=== PATIENT | male | born 1955 | race Caucasian/White ===

== ENCOUNTER → 2021-06-01 | Outpatient (CLI) | payer MEDICARE ==
[2021-06-01 11:07] LABS: CREATININE FOR GFR 1.3 MG/DL (0.70-1.30); GLOMERULAR FILTRATION RATE 58.4 (>49)
== END ==
LOC: M LAB 09:16
PROVIDERS: ATTEND Physician Assistant Medical
DX: 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, unilateral, 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 (principal)

== ENCOUNTER → 2021-06-07 | Outpatient (CLI) | payer MEDICARE ==
[~2021-06-07] MED LIST: PROHANCE 279.3MG/ML 5ML VIAL As Ordered ONE
--- NOTE | 2021-06-08 16:58 | REPVR ---
PROCEDURE INFORMATION: Exam: MR Head Without and With Contrast; Internal Auditory Canals Exam date and time: 06/07/2021 9:48 AM Age: 66 years old Clinical indication: Other: Hearing loss in left ear TECHNIQUE: Imaging protocol: MR of the head without and with intravenous contrast. Exam focused on the internal auditory canals. Contrast material: PROHANCE; Contrast volume: 10 ml; Contrast route: INTRAVENOUS (IV); COMPARISON: No relevant prior studies available. FINDINGS: Brain: Mild scattered nonspecific T2/FLAIR hyperintensities of the periventricular and deep subcortical white matter, most likely secondary to chronic small vessel ischemic change. No intracranial hemorrhage or extra-axial fluid collection. No evidence of mass effect or midline shift. No restricted diffusion to suggest acute infarct. Normal appearance of cranial nerves on thin T2 sequences. Cerebellopontine angle cisterns are clear. Meckel's caves are clear. Internal auditory canals are clear. No abnormal intracranial enhancement. Ventricles: No ventriculomegaly. Sinuses: Moderate mucosal thickening of the paranasal sinuses. Mastoid air cells: Complete opacification of left mastoid air cells and left middle ear cavity. Bones/joints: Unremarkable. IMPRESSION: 1. Complete opacification of left mastoid air cells and left middle ear cavity. Correlate clinically for signs/symptoms of left otomastoiditis. 2. No acute intracranial pathology. 3. Moderate mucosal thickening of the paranasal sinuses. Electronically signed by: Yoni Parker On 06/08/2021 16:58:02 PM
== END ==
LOC: M RAD 08:37
PROVIDERS: ATTEND Otolaryngology
DX: 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, unilateral, 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 (principal); J32.9 Chronic sinusitis, unspecified
CPT/HCPCS: 70553; A9576

== ENCOUNTER → 2021-06-25 | Outpatient (CLI) | payer MEDICARE, OTHER ==
[~2021-06-25] MED LIST changes: +DOXY100T PO; +ECOT81TA5 PO; +FLUTISP; +GLIM4TAB5 PO; +K-TA10TA2 PO; +MELA5CAP2 PO; +METF500T13 PO; +METO1TAB32 PO; +NIFE1TAB52 PO; -PROHANCE 279.3MG/ML 5ML VIAL As Ordered ONE; +SIMV40TA20 PO; +SM N0.65; +TRUL0.5I SC
== END ==
LOC: M LABSMTC 09:47
PROVIDERS: ATTEND Anesthesiology
DX: Z01.818 Encounter for other preprocedural examination (principal); Z20.828 Contact with and (suspected) exposure to other viral communicable diseases

== ENCOUNTER → 2021-06-25 | Outpatient (CLI) | payer MEDICARE ==
--- NOTE | 2021-06-25 18:39 | ECGEPIP ---
[facility] Test Date: 2021-06-25 Pat Name: DEEP FIELDS Department: Room: - Gender: Male It Consulting Director: JANET : 1955 Requested By: Chris Cox Order Number: [id number] Reading MD: James Hayward Measurements Intervals [place] Rate: 73 P: 83 CA: 186 QRS: 52 QRSD: 82 T: 75 QT: 400 QTc: 440 Interpretive Statements Normal sinus rhythm Artifact on the baseline, limb leads Borderline First Degree AV Block No prior tracing in the system Electronically Signed on 06-25-2021 18:38:57 EDT by James Hayward
== END ==
LOC: M EKG 10:06
PROVIDERS: ATTEND Anesthesiology
DX: Z01.818 Encounter for other preprocedural examination (principal); Z95.5 Presence of coronary angioplasty implant and graft; E11.9 Type 2 diabetes mellitus without complications

== ENCOUNTER 2021-06-30 06:58 | Day surgery (SDC) | payer MEDICARE ==
[~2021-06-30] VITALS: Ht 175.3 cm; Wt 100.4 kg
[~2021-06-30 06:58] MED LIST changes: +LR 1,000 ML IV ONE; +dexameTHASONE 4 MG/ML 1ML VIAL (J1100 PER 1MG) IV ONE
--- OUTSIDE RECORDS SUMMARY | 2021-06-30 07:02 | CCD | Continuity of Care Document ---
Author Author Yoni MATHUR MD, CHI KIM Organization Unknown Address [address] [place] [address] Phone [phone] Care Team Providers Care Operations Leader Name Role Phone Ada Baugh AUTM [phone] Denis Chauhan M.D. AUTM [phone] Problems Description No Information Available Social History Type Date Description Comments Sex Unknown ETOH Use Denies alcohol use Tobacco Use Start: Unknown Non Smoker Recreational Drug Use Never Used Drugs Allergies and adverse reactions Active Allergies Criticality Reaction | Severity Comments Date Penicillins Unable to assess criticality 05/06/2021 Medications Active Medications SIG Qnty Indications Ordering Provide r Date Doxycycline Hyclate 100mg Tablets 100 mg by mouth twice daily x 21days 42tabs H70.12 Sumanth Mathur MD Fluticasone Propionate 50mcg/Act Suspension 2 sprays to each nostril daily 48gm H70.12 Sumanth cox MD 06/10/2021 Saline Nasal [place] 0.65% Solution 2 sprays to each nostril 2-3 times a day and as needed 264ml H70.12 To myles Mathur MD 06/10/2021 Metoprolol Succinate ER 25mg Tablets ER 24HR Take 1 Tablet By Mouth Once Daily Denis Chauhan M.D. Metformin HCL 500mg Tablets Take 1 Tablet By Mouth Twice Daily Denis Chauhan M.D. 00/0 000 Glimepiride 4mg Tablets Take 2 Tablets By Mouth Once Daily Denis Chauhan M.D. Trulicity 1.5mg/0.5ML Solution Pen -Inject Inject 1.5MG Weekly Denis Chauhan M.D. Nifedipine ER Osmotic Release 30mg Tablets ER 24HR Take 1 Tablet By Mouth Once Daily AT Bedtime Denis Chauhan M.D. Simvastatin 40mg Tablets Take 1 Tablet By Mouth Once Daily In The Evening Denis Chauhan M .D. Immunizations Description No Information Available Vital Signs Date Vital Result Comment 06/10/2021 1:36pm Height 69 inches 5'9" Weight 225.00 lb BMI (Body Mass Index) 33.2 kg/m2 [place] Body Weight 160 lb Weight 102.060 kg BSA (Body Surface Area) 2.17 m2 05/06/2021 3:16pm Weight 225.00 lb Weight 102.060 kg Results Test Acquired Date Facility Test Result H/L Range Note BUN & Creatinine ([facility]) 06/01/2021 [facility] Main Lab [address] [place] [id number] [phone] Blood Urea Nitrogen 16 mg/dL Normal 7-18 Creatinine With GFR 06/01/2021 [facility] nter Main Lab [address] [place] [address] [phone] Creatinine For GFR 1.30 mg/dL Normal 0.70-1.30 Glomerular Filtration Rate 58.4 Normal >49 1 1 Units are mL/min/1.73 m2 Chronic Kidney Disease Staging per NKF: Stage I & II GFR >=60 Normal to Mildly Decreased Stage III GFR 30-59 Moderately Decreased Stage IV GFR 15-29 Severely Decreased Stage V GFR <15 Very Little GFR Left ESRD GFR <15 on PICKER Procedures Date Code Description Status 05/06/2021 16099 Office/Outpatient New Moderate M DM 45-59 Minutes Completed Medical Devices Description No Information Available Encounters Type Date Location Provider Dx Diagnosis Office Visit 05/06/2021 3:00p [facility] Sumanth Mathur MD H90.A32 Mix cndct/snrl hear loss,uni,l ear w rstrcd hear cntra side H69.92 Unspecified Eustachian tube disorder, left ear H90.A21 Snsrnrl hear loss, uni, r ea r, with rstrcd hear cntra side Assessments Date Code Description Provider 06/10/2021 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, unilateral, 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 Sumanth Mathur MD 06/10/2021 H69.92 Unspecified Eustachian tube diso rder, left ear Sumanth Mathur MD 06/10/2021 H70.12 Chronic mastoiditis, left ear To myles Mathur MD 06/10/2021 J31.0 Chronic rhinitis Sumanth Mathur MD 05/06/2021 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
--- OUTSIDE RECORDS SUMMARY | 2021-06-30 07:02 | CCD | Continuity of Care Document ---
Author Author Yoni GERONIMO II, PA-C Organization Unknown Address [address], [address] [place] [address] Phone [phone] Care Team Providers Care Combat Systems Engineer Name Role Phone Ada Baugh AUTM [phone] Denis Chauhan M.D. AUTM [phone] Problems Description No Information Available Social History Type Date Description Comments Sex Unknown ETOH Use Denies alcohol use Tobacco Use Start: Unknown Non Smoker Recreational Drug Use Never Used Drugs Allergies and adverse reactions Active Allergies Criticality Reaction | Severity Comments Date Penicillins Unable to assess criticality 05/06/2021 Medications Active Medications SIG Qnty Indications Ordering Provide r Date Metoprolol Succinate ER 25mg Tablets ER 24HR Take 1 Tablet By Mouth Once Daily Denis Chauhan M.D. Metformin HCL 500mg Tablets Take 1 Tablet By Mouth Twice Daily Denis Chauhan M.D. 000 Glimepiride 4mg Tablets Take 2 Tablets By Mouth Once Daily Denis Chauhan M.D. Trulicity 1.5mg/0.5ML Solution Pen -Inject Inject 1.5MG Weekly Denis Chauhan M.D. 00 Nifedipine ER Osmotic Release 30mg Tablets ER 24HR Take 1 Tablet By Mouth Once Daily AT Bedtime Denis Chauhan M.D. Simvastatin 40mg Tablets Take 1 Tablet By Mouth Once Daily In The Evening Denis Chauhan M .D. Immunizations Description No Information Available Vital Signs Date Vital Result Comment 05/06/2021 3:16pm Weight 225.00 lb Weight 102.060 kg Results Test Acquired Date Facility Test Result H/L Range Note BUN & Creatinine ([facility]) 06/01/2021 [facility] Main Lab [address] [place] [address] [phone] Blood Urea Nitrogen 16 mg/dL Normal 7-18 Creatinine With GFR 06/01/2021 [facility] nter Main Lab [address] [place] [address] [phone] Creatinine For GFR 1.30 mg/dL Normal 0.70-1.30 Glomerular Filtration Rate 58.4 Normal >49 1 1 Units are mL/min/1.73 m2 Chronic Kidney Disease Staging per NKF: Stage I & II GFR >=60 Normal to Mildly Decreased Stage III GFR 30-59 Moderately Decreased Stage IV GFR 15-29 Severely Decreased Stage V GFR <15 Very Little GFR Left ESRD GFR <15 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 Procedures Description No Information Available Medical Devices Description No Information Available Encounters Description No Information Available Assessments Date Code Description Provider 05/06/2021 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, unilateral, 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 Sumanth Mathur MD 05/06/2021 H69.92 Unspecified Eustachian tube diso rder, left ear Sumanth Mathur MD 05/06/2021 H90.A21 Sensorineural hearin g loss, unilateral, right ear, with restricted hearing on the contralateral side Sumanth Mathur MD Plan of Treatment Future Appointment(s):* 06/10/2021 2:00 pm - Sumanth Mathur MD at [facility] * 06/30/2021 10:15 am - Sumanth Mathur MD at [facility] 05/06/2021 - Sumanth Mathur MD* 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
--- OUTSIDE RECORDS SUMMARY | 2021-06-30 07:02 | CCD | Continuity of Care Document ---
Author Author Yoni BETTENCOURT P.C. Organization Unknown Address [address] [place] [address] Phone [phone] Care Team Providers Care Acupressure Therapist Name Role Phone DENIS CHAUHAN M.D. PChalo AUTM [phone] Social History Type Date Description Comments Sex Unknown Medications Active Medications SIG Qnty Indications Ordering Provide r Date Keflex 500mg Capsules 1 by mouth three times a day 30caps Denis Chauhan M.D., P.C. 021 [address] 1 by mouth every day Denis Chauhan M.D., P.C[facility] 021 Valtrex 500mg Tablets 1 tab by mouth twice a day 30tabs Denis Chauhan M.D., P.C[facility] 021 Zovirax 5% Cream apply twice a day to rash 5gm Denis Chauhan M.D[facility] P[facility] 021 Hydroxyzine HCL 25mg Tablets 1 tab by mouth twice a day 30tabs Denis Chauhan M.D., P.C. 09/20 Betamethasone Dipropionate 0.05% O intment apply twice daily on affected area of the abdomen 45gm Denis Chauhan M.D[facility] 09/06/2020 Trulicity 1.5mg/0.5ML Solution Pen -Inject Inject 1.5MG Weekly 12units Denis Chauhan M.D., P.C. Metoprolol Succinate ER 25mg Tablets ER 24HR Take 1 tablet by mouth once daily 90tabs Denis rice M.D., P.C. Simvastatin 40mg Tablets Take 1 Tablet By Mouth Once Daily In The Evening 90tabs Olga Bettencourt, P.C. Metformin HCL 500mg Tablets Take 1 tablet by mouth twice daily 180tabs Denis Chauhan M.D., P.C. Nifedipine ER Osmotic Release 30mg Tablets ER 24HR Take 1 Tablet By Mouth Once Daily AT Bedtime 90tabs Denis Chauhan M.D., P.C. Freestyle Lite Test In Vitro 0 Str ip Use 1 Strip To Check Glucose Twice Daily 200units Denis Chauhan M.D., P.C. Freestyle Lite Test Strips [facility] Glimepiride 4mg Tablets Take 2 tablets by mouth once daily 180tabs Denis Chauhan M.D., [facility] Medications Administered in Office Medication SIG Qnty Indications Ordering Provider Date Technetium TC 99M Sestamibi Injection Denis Chauhan M.D., P.C. 09/12/2018 Vital Signs Date Vital Result Comment 05/09/2021 11:11am Height 69 inches 5'9" Weight 223.00 lb BMI (Body Mass Index) 32.9 kg/m2 Body Temperature 97.7 F BP Systolic 136 mmHg BP Diastolic 75 mmHg Heart Rate 81 /min O2 % BldC Oximetry 96 % 04/01/2021 11:23am Height 69 inches 5'9" Weight 225.12 lb BMI (Body Mass Index) 33.2 kg/m2 Body Temperature 98.1 F BP Systolic 145 mmHg BP Diastolic 86 mmHg Heart Rate 85 /min O2 % BldC Oximetry 98 % Respiratory Rate 18 /min Results Test Acquired Date Facility Test Result H/L Range Note Laboratory test finding 04/06/[address] [address] [phone] Hgba1c 9.2 % High 4.4 - 6.1 1 Urinalysis 04/06/[address] [address] [phone] Urinalysis (SEE NOTE) 2 Source R Color yellow Normal: Yellow Clarity clear Normal: Clear Spec [place] 1.020 1.001 - 1.030 pH 5 5 - 9 Glucose 1000 Abnormal Normal: Negative Bilirubin NEG Normal: Negative Ketone NEG Normal: Negative Protein NEG Normal: Negative Nitrite NEG Normal: Negative Blood NEG Normal: Negative Leuk Est NEG Normal: Negative Urobilinogen NOR less than 1.0 mg/dL Microscopic Not Indicate Laboratory test finding 04/06/2021 [facility] [address] [place] [address] [phone] PSA - Diagnostic 0.97 ng/mL 0.00 - 4.00 3 Cve Panel 04/06/2021 [facility] [address] [place] [address] [phone] Cve Panel (SEE NOTE) 4 Cholesterol 112 mg/dL Low 131 - 200 Triglycerides 283 mg/dL High 35 - 160 HDL 27 mg/dL Low 29 - 86 LDL 67 mg/dL 65 - 175 Risk Factor 4.1 3.4 - 4.9 LDL/HDL 2.48 1.00 - 3.55 5 Comprehensive Metabolic Panel 04/06/2021 [facility] [address] [place] [address] [phone] Comprehensive Metabo (SEE NOTE) 6 Sodium 134 mEq/L 134 - 153 Potassium 4.5 mEq/L 3.6 - 5.0 Chloride 100 mEq/L 98 - 107 Co2 23 mEq/L 22 - 30 Glucose 366 mg/dL High 70 - 99 BUN 16 mg/dL 7 - 21 Creatinine 1.1 mg/dL 0.7 - 1.5 BUN/Creat 15 8 - 27 Total Protein 7.1 g/dL 6.3 - 8.2 Albumin 4.2 g/dL 3.9 - 5.0 Globulin 2.9 GM/DL 2.4 - 3.2 A/G Ratio 1.4 0.8 - 2.0 Calcium 9.1 mg/dL 8.4 - 10.2 Total Bili <0.7 mg/dL 0.2 - 1.3 Alkaline Phos 68 U/L 38 - 126 Sgot/Ast 18 U/L 5 - 40 SGPT/Alt 22 U/L 7 - 56 Anion Gap 11.0 mmol/L 8.0 - 16.0 Age 66 yrs Non-Aa GFR >60 mL/min Afr Amer GFR >60 mL/min 7 Laboratory test finding 04/06/[address] [address] [phone] Cea 3.7 ng/mL 0.0-4.7 8 Culture Urine 04/06/2021 [place] [address] [phone] Culture Urine (SEE NOTE) 9 CBC W/Automated Diff 01/03/2021 [place] [address] [phone] CBC W/Automated Diff (SEE NOTE) 10 WBC 8.5 10^3/uL 4.2 - 11.0 RBC 5.88 10^6/uL 4.50 - 6.30 Hemoglobin 16.7 g/dL High 14.0 - 16.0 Hematocrit 49.9 % 41.0 - 51.0 MCV 84.9 fL 80.0 - 94.0 MCH 28.4 pg 27.0 - 34.0 MCHC 33.5 g/dL 31.0 - 36.0 RDW 13.4 % 11.5 - 14.8 Platelets 279 10^3/uL 150 - 450 MPV 9.2 fL 7.4 - 10.4 Neut 61.5 % 37.0 - 80.0 Lymph 23.6 % Low 25.0 - 40.0 Villalba 7.8 % 3.0 - 8.0 Eos 6.0 % 0.0 - 7.0 Baso 0.9 % 0.0 - 2.0 %Ig 0.2 % High 0.0 - 0.0 %NRBC 0.0 % 0.0 - 0.0 #Neut 5.20 10^3/uL 2.00 - 6.90 #Lymph 2.00 10^3/uL 0.60 - 3.40 #Villalba 0.66 10^3/uL 0.00 - 0.90 #Eos 0.51 10^3/uL 0.00 - 0.70 #Baso 0.08 10^3/uL 0.00 - 0.20 #Ig 0.02 10^3/uL 0.00 - 0.10 #NRBC 0.00 10^3/uL 0.00 - 0.00 Manual Diff NOT INDICATED RBC Morph NOT INDICATED Laboratory test finding 01/03/[address] [id number] [phone] Hgba1c 9.2 % High 4.4 - 6.1 11 Cve Panel 01/03/[address] [address] [phone] Cve Panel (SEE NOTE) 12 Cholesterol 123 mg/dL Low 131 - 200 Triglycerides 183 mg/dL High 35 - 160 HDL 32 mg/dL 29 - 86 LDL 79 mg/dL 65 - 175 Risk Factor 3.8 3.4 - 4.9 LDL/HDL 2.47 1.00 - 3.55 13 Laboratory test finding 01/03/[address] [address] [phone] CRP (High Sensitivity) 3.73 mg/L High 1.00 - 3. 00 14 Comprehensive Metabolic Panel 01/03/2021 [facility] [address] [place] [address] [phone] Comprehensive Metabo (SEE NOTE) 15 Sodium 136 mEq/L 134 - 153 Potassium 4.2 mEq/L 3.6 - 5.0 Chloride 99 mEq/L 98 - 107 Co2 28 mEq/L 22 - 30 Glucose 239 mg/dL High 70 - 99 BUN 13 mg/dL 7 - 21 Creatinine 1.1 mg/dL 0.7 - 1.5 BUN/Creat 12 8 - 27 Total Protein 7.5 g/dL 6.3 - 8.2 Albumin 4.5 g/dL 3.9 - 5.0 Globulin 3.0 GM/DL 2.4 - 3.2 A/G Ratio 1.5 0.8 - 2.0 Calcium 9.5 mg/dL 8.4 - 10.2 Total Bili <0.7 mg/dL 0.2 - 1.3 Alkaline Phos 67 U/L 38 - 126 Sgot/Ast 28 U/L 5 - 40 SGPT/Alt 37 U/L 7 - 56 Anion Gap 9.0 mmol/L 8.0 - 16.0 Age 65 yrs Non-Aa GFR >60 mL/min Afr Amer GFR >60 mL/min 16 Laboratory test finding 01/03/[address] [address] [phone] Ana M Ifa Negative 17 1 {A1] {HB] 2 URINALYSIS 3 \\BLDo\\PSA INTERPRETATION\\BLD x\\ The PSA assay should not be used alone for a screening test or diagnosis for presence or absence of malignant disease. Predictions of disease recurrence should not be based solely on values obtained from serial patient serum values. The PSA result was determined by "[employer]", on the Master TAYLOR 6000. Values obtained with different assay methods or kits cannot be used interchangeably. 4 LIPID PANEL 5 CVE RISK CHOL/HDL LDL/HDL MEN: 1/2 AVERAGE 3.43 1.00 AVERAGE 4.97 3.55 2X AVERAGE 9.55 6.25 3X AVERAGE 23.99 7.99 WOMEN: 1/2 AVERAGE 3.27 1.47 AVERAGE 4.44 3.22 2X AVERAGE 7.05 5.03 3X AVERAGE 11.04 6.14 6 COMPREHENSIVE METABOLIC PANE L 7 Male GFR Interprentation 20-49 yrs >60 mL/min Normal 50-59 yrs >56 mL/min Normal 60-69 yrs >49 mL/min Normal 70-79yrs >42 mL/min Normal 80 and above >35 mL/min Normal Female GFR Interpretation 20-39 yrs >60 mL/min Normal 40-49 yrs >58 mL/min Normal 50-59 yrs >51 mL/min Normal 60-69 yrs >45 mL/min Normal 70-79 yrs >39 mL/min Normal 80 and above >32 mL/min Normal 8 Nonsmokers <3.9 Smokers <5.6 [employer] Electrochemiluminescence Immunoassay (ECLIA) Values obtained with different assay methods or kits cannot be used interchangeably. Results cannot be interpreted as absolute evidence of the presence or absence of malignant disease. 9 _CULTURE URINE_ ^$[id number] ^^[id number] $$166369 ^^037829 $$118665 $$843156 $$280568 $$711869 $$062845 $$863503 $$584041 $$764564 $$447134 $$499377 $$429635 $$351545 $$652977 $$377792 $$686765 $$245319 $$648263 $$680343 $$628522 $$623974 $$699603 $$240717 $$392231 ^^251337 $$755451 $$973012 $$774541 -- Continued on next page -- Patient: DIAMOND Mack Order: [id number] Page 2 Culture: CULTURE URINE Status: Final -- Continued on next page -- Patient: DIAMOND Mack Order: [id number] Page 2 Culture: CULTURE URINE Status: Prelim $$[id number] $$[id number] REPORTED DATE/TIME: 04/09/2021 14:06 Culture: CULTURE URINE Status: Final Urine Culture,Comprehensive: P1 No growth in 36 - 48 hours. Previous result entered on 04/08/2021 13:44 ET No growth after 18-24 hours. P1 Test performed by: [facility] #: [id number] [address] [place] [address] [id number] [facility] [address] [employer] Press Operator : Bijan Yang MD NPI #: Non Destructive Testing Supervisor : 04/08/21.1456.XMT.SENT REF 04/09/21.2012.XMT.SENT REF 04/11/21.1140.XMT.SENT REF 04/11/21.1140. .to [facility] via mode m 10 COMPLETE BLOOD COUNT 11 {A1] {HB] 12 LIPID PANEL 13 CVE RISK CHOL/HDL LDL/HDL MEN: 1/2 AVERAGE 3.43 1.00 AVERAGE 4.97 3.55 2X AVERAGE 9.55 6.25 3X AVERAGE 23.99 7.99 WOMEN: 1/2 AVERAGE 3.27 1.47 AVERAGE 4.44 3.22 2X AVERAGE 7.05 5.03 3X AVERAGE 11.04 6.14 14 CDC/S HS-CRP CUT-OFF: RELATIVE RISK: <1.0 mg/L Low 1.0 - 3.0 mg/L A verage >3.0 mg/L High Optimally, the average of HS-CRP results repeated two weeks apart should be used for risk assessment. 15 COMPREHENSIVE METABOLIC PANE L 16 Male GFR Interprentation 20-49 yrs >60 mL/min Normal 50-59 yrs >56 mL/min Normal 60-69 yrs >49 mL/min Normal 70-79yrs >42 mL/min Normal 80 and above >35 mL/min Normal Female GFR Interpretation 20-39 yrs >60 mL/min Normal 40-49 yrs >58 mL/min Normal 50-59 yrs >51 mL/min Normal 60-69 yrs >45 mL/min Normal 70-79 yrs >39 mL/min Normal 80 and above >32 mL/min Normal 17 Negative <1:80 Borderline 1:80 Positive >1:80 Procedures Date Code Description Status 05/09/2021 38022 Office/Outpatient Established Mo d MDM 30-39 Min Completed 04/01/2021 04854 Office/Outpatient Established Mo d MDM 30-39 Min Completed 12/31/2020 72993 Office/Outpatient Established Mo d MDM 30-39 Min Completed Encounters Type Date Location Provider Dx Diagnosis Office Visit 05/09/2021 11:00a [facility] Denis [facility]auhan [facility] I11.9 Hypertensive heart disease without heart failure E10.9 Type 1 diabetes mellitus wit hout complications H66.92 Otitis media, unspecified, l eft ear E78.5 Hyperlipidemia, unspecified Office Visit 04/01/2021 11:30a [facility] Denis Chauhan [facility] I11.9 Hypertensive heart disease without heart failure E11.9 Type 2 diabetes mellitus wit hout complications E78.5 Hyperlipidemia, unspecified E66.9 Obesity, unspecified Office Visit 12/31/2020 10:15a [facility] Denis Chauhan [facility] I11.9 Hypertensive heart disease without heart failure E10.9 Type 1 diabetes mellitus wit hout complications L23.9 Allergic contact dermatitis, unspecified cause Assessments Date Code Description Provider 05/09/2021 I11.9 Hypertensive heart disease witho ri heart failure Denis [facility] 05/09/2021 E10.9 Type 1 diabetes mellitus without complications Denis [facility] 05/09/2021 H66.92 Otitis media, unspecified, left ear Denis [facility]han [facility] 05/09/2021 E78.5 Hyperlipidemia, unspecified Brannon Chauhan M.D., [facility]. 04/01/2021 I11.9 Hypertensive heart disease witho ri heart failure Denis [facility]han [facility] 04/01/2021 E11.9 Type 2 diabetes mellitus without complications Denis [facility] 04/01/2021 E78.5 Hyperlipidemia, unspecified Brannon Chauhan M.D[facility] 04/01/2021 E66.9 Obesity, unspecified Denis cavanaugh M.D[facility] 12/31/2020 I11.9 Hypertensive heart disease witho ri heart failure Denis [facility]han [facility] 12/31/2020 E10.9 Type 1 diabetes mellitus without complications Denis [facility]han [facility] 12/31/2020 L23.9 Allergic contact dermatitis, uns pecified cause Denis [facility]auhan [facility]
--- OUTSIDE RECORDS SUMMARY | 2021-06-30 07:02 | CCD | Continuity of Care Document ---
Author Author NORMAN VELA, Yoni CHAVIS [facility] Organization Unknown Address [address] [place] [address] Phone [phone] Care Team Providers Care Viscose Department Worker Name Role Phone Ada Baugh AUTM [phone] Denis Chauhan M.D. 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
--- OUTSIDE RECORDS SUMMARY | 2021-06-30 07:02 | CCD | Continuity of Care Document ---
Author Author Yoni Oden Organization Unknown Address Unknown Phone [phone] Care Team Providers Care Autism Teacher Name Role Phone DENIS CHAUHAN M.D. P.C. AUTM [phone] Social History Type Date Description Comments Sex Unknown Medications Active Medications SIG Qnty Indications Ordering Provide r Date Keflex 500mg Capsules 1 by mouth three times a day 30caps Denis Chauhan M.D.,P.C. 05/09/20 21 Aspir[address] 1 by mouth every day Denis Chauhan M.D.,P.[facility] 09/20/19 21 Valtrex 500mg Tablets 1 tab by mouth twice a day 30tabs Denis Chauhan M.D[facility]P.C. 09/20/19 21 Zovirax 5% Cream apply twice a day to rash 5gm Denis Chauhan M.D[facility]. 09/20/19 21 Hydroxyzine HCL 25mg Tablets 1 tab by mouth twice a day 30tabs Denis Chauhan M.D[facility] 2020 Betamethasone Dipropionate 0.05% O intment apply twice daily on affected area of the abdomen 45gm Denis Chauhan M.D[facility]. 09/06/2020 Trulicity 1.5mg/0.5ML Solution Pen -Inject Inject 1.5MG Weekly 12units Denis Chauhan M.D[facility]. 00 Metoprolol Succinate ER 25mg Tablets ER 24HR Take 1 tablet by mouth once daily 90tabs Denis rice M.D.,P.C. Simvastatin 40mg Tablets Take 1 Tablet By Mouth Once Daily In The Evening 90tabs Olga Amaro,P.C. Metformin HCL 500mg Tablets Take 1 tablet by mouth twice daily 180tabs Denis Chauhan M.D.,[facility]. Nifedipine ER Osmotic Release 30mg Tablets ER 24HR Take 1 Tablet By Mouth Once Daily AT Bedtime 90tabs Denis Chauhan M.D[facility]P.[facility]. Freestyle Lite Test In Vitro 0 Str ip Use 1 Strip To Check Glucose Twice Daily 200units Denis Chauhan M.D[facility]. Freestyle Lite Test Strips [facility] Glimepiride 4mg Tablets Take 2 tablets by mouth once daily 180tabs Denis Chauhan M.D[facility] 0 000 Medications Administered in Office Medication SIG Qnty Indications Ordering Provider Date Technetium TC 99M Sestamibi Injection Denis Chauhan M.D.,P.C. 09/12/2018 Vital Signs Date Vital Result Comment [...] Result H/L Range Note Laboratory test finding [facility] [address] [place] [address] [phone] Blood Urea Nitrogen 16 mg/dL Normal 7-18 Creatinine With GFR 06/01/2021 [place] [address] [place] [address] [phone] Creatinine For GFR 1.30 mg/dL Normal 0.70-1.30 Glomerular Filtration Rate 58.4 Normal >49 1 Laboratory test finding 04/06/[address] [address] [phone] Hgba1c 9.2 % High 4.4 - 6.1 2 Urinalysis 04/06/[address] [address] [phone] Urinalysis (SEE NOTE) 3 Source R Color yellow Normal: Yellow Clarity clear Normal: Clear Spec [place] 1.020 1.001 - 1.030 pH 5 5 - 9 Glucose 1000 Abnormal Normal: Negative Bilirubin NEG Normal: Negative Ketone NEG Normal: Negative Protein NEG Normal: Negative Nitrite NEG Normal: Negative Blood NEG Normal: Negative Leuk Est NEG Normal: Negative Urobilinogen NOR less than 1.0 mg/dL Microscopic Not Indicate Laboratory test finding 04/06/2021 [place] [address] [phone] PSA - Diagnostic 0.97 ng/mL 0.00 - 4.00 4 Cve Panel 04/06/2021 [place] [id number] [phone] Cve Panel (SEE NOTE) 5 Cholesterol 112 mg/dL Low 131 - 200 Triglycerides 283 mg/dL High 35 - 160 HDL 27 mg/dL Low 29 - 86 LDL 67 mg/dL 65 - 175 Risk Factor 4.1 3.4 - 4.9 LDL/HDL 2.48 1.00 - 3.55 6 Comprehensive Metabolic Panel 04/06/2021 [facility] [address] [place] [phone] Comprehensive Metabo (SEE NOTE) 7 Sodium 134 mEq/L 134 - 153 Potassium [...] >60 mL/min Afr Amer GFR >60 mL/min 8 Laboratory test finding 04/06/2021 [place] [address] [phone] Cea 3.7 ng/mL 0.0-4.7 9 Culture Urine 04/06/2021 [place] [address] [phone] Culture Urine (SEE NOTE) 10 CBC W/Automated Diff 01/03/2021 [place] [address] [phone] CBC W/Automated Diff (SEE NOTE) 11 WBC 8.5 10^3/uL 4.2 - 11.0 RBC [...] Lymph 23.6 % Low 25.0 - 40.0 Cannon 7.8 % 3.0 - 8.0 Eos 6.0 % 0.0 - 7.0 Baso 0.9 % 0.0 - 2.0 %Ig 0.2 % High 0.0 - 0.0 %NRBC 0.0 % 0.0 - 0.0 #Neut 5.20 10^3/uL 2.00 - 6.90 #Lymph 2.00 10^3/uL 0.60 - 3.40 #Cannon 0.66 10^3/uL 0.00 - 0.90 #Eos 0.51 10^3/uL 0.00 - 0.70 #Baso 0.08 10^3/uL 0.00 - 0.20 #Ig 0.02 10^3/uL 0.00 - 0.10 #NRBC 0.00 10^3/uL 0.00 - 0.00 Manual Diff NOT INDICATED RBC Morph NOT INDICATED Laboratory test finding 01/03/2021 [facility] [address] [place] [address] [phone] Hgba1c 9.2 % High 4.4 - 6.1 12 Cve Panel 01/03/[address] [address] [phone] Cve Panel (SEE NOTE) 13 Cholesterol 123 mg/dL Low 131 - 200 Triglycerides 183 mg/dL High 35 - 160 HDL 32 mg/dL 29 - 86 LDL 79 mg/dL 65 - 175 Risk Factor 3.8 3.4 - 4.9 LDL/HDL 2.47 1.00 - 3.55 14 Laboratory test finding 01/03/2021 [facility] [address] [place], [place] [id number] [phone] CRP (High Sensitivity) 3.73 mg/L High 1.00 - 3. 00 15 Comprehensive Metabolic Panel 01/03/2021 [facility] [address] [place] [address] [phone] Comprehensive Metabo (SEE NOTE) 16 Sodium 136 mEq/L 134 - 153 Potassium [...] >60 mL/min Afr Amer GFR >60 mL/min 17 Laboratory test finding 01/03/2021 [facility] [address] [place] [address] [phone] Ana M Ifa Negative 18 1 Units are mL/min/1.73 m2 Chronic Kidney Disease Staging per NKF: Stage I & II GFR >=60 Normal to Mildly Decreased Stage III GFR 30-59 Moderately Decreased Stage IV GFR 15-29 Severely Decreased Stage V GFR <15 Very Little GFR Left ESRD GFR <15 on GENERAL MERCHANDISE SALESPERSON 2 {A1] {HB] 3 URINALYSIS 4 \\BLDo\\PSA INTERPRETATION\\BLD x\\ The PSA assay should not be used alone for a screening test or diagnosis for presence or absence of malignant disease. Predictions of disease recurrence should not be based solely on values obtained from serial patient serum values. The PSA result was determined by "[employer]", on the [employer] TAYLOR 6000. Values obtained with different assay methods or kits cannot be used interchangeably. 5 LIPID PANEL 6 CVE RISK CHOL/HDL LDL/HDL MEN: 1/2 AVERAGE 3.43 1.00 AVERAGE 4.97 3.55 2X AVERAGE 9.55 6.25 3X AVERAGE 23.99 7.99 WOMEN: 1/2 AVERAGE 3.27 1.47 AVERAGE 4.44 3.22 2X AVERAGE 7.05 5.03 3X AVERAGE 11.04 6.14 7 COMPREHENSIVE METABOLIC PANE L 8 Male GFR Interprentation 20-49 yrs >60 mL/min Normal 50-59 yrs >56 mL/min Normal 60-69 yrs >49 mL/min Normal 70-79yrs >42 mL/min Normal 80 and above >35 mL/min Normal Female GFR Interpretation 20-39 yrs >60 mL/min Normal 40-49 yrs >58 mL/min Normal 50-59 yrs >51 mL/min Normal 60-69 yrs >45 mL/min Normal 70-79 yrs >39 mL/min Normal 80 and above >32 mL/min Normal 9 Nonsmokers <3.9 Smokers <5.6 [employer] Electrochemiluminescence Immunoassay (ECLIA) Values obtained with different assay methods or kits cannot be used interchangeably. Results cannot be interpreted as absolute evidence of the presence or absence of malignant disease. 10 _CULTURE URINE_ ^$[id number] ^^027611 $$071973 ^^116133 $$984847 $$523492 $$677559 $$102067 $$475163 $$786011 $$307268 $$638369 $$702331 $$330634 $$948361 $$094357 $$980965 $$346950 $$836799 $$231301 $$584030 $$482187 $$516620 $$946574 $$526832 $$306741 $$131986 ^^751744 $$519087 $$087331 $$823988 -- Continued on next page -- Patient: DIAMOND Mack Order: [id number] Page 2 Culture: CULTURE URINE Status: Final -- Continued on next page -- Patient: DIAMOND Mack Order: [id number] Page 2 Culture: CULTURE URINE Status: Prelim $$[id number] $$[id number] REPORTED DATE/TIME: 04/09/2021 14:06 Culture: CULTURE URINE Status: Final Urine Culture,Comprehensive: P1 No growth in 36 - 48 hours. Previous result entered on 04/08/2021 13:44 ET No growth after 18-24 hours. P1 Test performed by: [facility] Cheryl JOHNSON #: [id number] [address] [place] [address] [phone] [facility] [address] Blind Hanger : Bijan Yang MD NPI #: Staff Reporter : 04/08/21.1456.XMT.SENT REF 04/09/21.2013.XMT.SENT REF 04/11/21.1140.XMT.SENT REF 04/11/21.1140. .to HARRY STORM via mode m 11 COMPLETE BLOOD COUNT 12 {A1] {HB] 13 LIPID PANEL 14 CVE RISK CHOL/HDL LDL/HDL MEN: 1/2 AVERAGE 3.43 1.00 AVERAGE 4.97 3.55 2X AVERAGE 9.55 6.25 3X AVERAGE 23.99 7.99 WOMEN: 1/2 AVERAGE 3.27 1.47 AVERAGE 4.44 3.22 2X AVERAGE 7.05 5.03 3X AVERAGE 11.04 6.14 15 CDC/S HS-CRP CUT-OFF: RELATIVE RISK: <1.0 mg/L Low 1.0 - 3.0 mg/L A verage >3.0 mg/L High Optimally, the average of HS-CRP results repeated two weeks apart should be used for risk assessment. 16 COMPREHENSIVE METABOLIC PANE L 17 Male GFR Interprentation 20-49 yrs >60 mL/min Normal 50-59 yrs >56 mL/min Normal 60-69 yrs >49 mL/min Normal 70-79yrs >42 mL/min Normal 80 and above >35 mL/min Normal Female GFR Interpretation 20-39 yrs >60 mL/min Normal 40-49 yrs >58 mL/min Normal 50-59 yrs >51 mL/min Normal 60-69 yrs >45 mL/min Normal 70-79 yrs >39 mL/min Normal 80 and above >32 mL/min Normal 18 Negative <1:80 Borderline 1:80 Positive >1:80 Procedures Date Code Description Status 05/09/2021 56277 Office/Outpatient Established Mo d MDM 30-39 Min Completed 04/01/2021 44542 Office/Outpatient Established Mo d MDM 30-39 Min Completed 12/31/2020 39696 Office/Outpatient Established Mo d MDM 30-39 Min Completed Encounters Type Date Location Provider Dx Diagnosis Office Visit 05/09/2021 11:00a [facility] Denis Chauhan M.D.,P. C. I11.9 Hypertensive heart disease without heart failure E10.9 Type 1 diabetes mellitus wit hout complications H66.92 Otitis media, unspecified, l eft ear E78.5 Hyperlipidemia, unspecified Office Visit 04/01/2021 11:30a [facility] Denis Chauhan M.D.,P. C. I11.9 Hypertensive heart disease without heart failure E11.9 Type 2 diabetes mellitus wit hout complications E78.5 Hyperlipidemia, unspecified E66.9 Obesity, unspecified Office Visit 12/31/2020 10:15a [facility] Denis Chauhan M.D.,P. C. I11.9 Hypertensive heart disease without heart failure E10.9 Type 1 diabetes mellitus wit hout complications L23.9 Allergic contact dermatitis, unspecified cause Assessments Date Code Description Provider 05/09/2021 I11.9 Hypertensive heart disease witho ut heart failure Denis Chauhan M.D[facility]. 05/09/2021 E10.9 Type 1 diabetes mellitus without complications Denis Chauhan M.D.,[facility]. 05/09/2021 H66.92 Otitis media, unspecified, left ear Denis Chauhan M.D.,P.C. 05/09/2021 E78.5 Hyperlipidemia, unspecified Brannon Chauhan M.D.,P.C. 04/01/2021 I11.9 Hypertensive heart disease witho ut heart failure Denis Chauhan M.D.,P.C. 04/01/2021 E11.9 Type 2 diabetes mellitus without complications Denis Chauhan M.D.,[facility]. 04/01/2021 E78.5 Hyperlipidemia, unspecified Brannon Chauhan M.D.,P.C. 04/01/2021 E66.9 Obesity, unspecified Denis cavanaugh M.D.,P.C. 12/31/2020 I11.9 Hypertensive heart disease witho ut heart failure Denis Chauhan M.D.,P.C. 12/31/2020 E10.9 Type 1 diabetes mellitus without complications Denis Chauhan M.D.,[facility]. 12/31/2020 L23.9 Allergic contact dermatitis, uns pecified cause Denis Chauhan M.D.,P.C.
--- OUTSIDE RECORDS SUMMARY | 2021-06-30 07:02 | CCD | Continuity of Care Document ---
Author Author NORMAN VELA, Yoni CHAVIS [facility] Organization Unknown Address [address] [place] [address] Phone [phone] Care Team Providers Care Transport Nurse Name Role Phone Ada Baugh AUTM [phone] Denis Chauhan M.D. AUTM [phone] Problems Description No Information Available Social History [...]
--- OUTSIDE RECORDS SUMMARY | 2021-06-30 07:02 | CCD ---
"Continuity of Care Document (CCD) Created on: 05/06/2021 Yoni Solares External Reference #: [id number] : [id number] Sex: Male Author Author NORMAN VELA, Yoni CHAVIS [facility] Organization Unknown Address [address] [place] [address] Phone [phone] Care Team Providers Care Sander Wooden Pencils Name Role Phone Ada Baugh AUTM [phone] Denis Chauhan M.D. AUTM [phone] Problems Description No Information Available Social History [...]
--- OUTSIDE RECORDS SUMMARY | 2021-06-30 07:02 | CCD | Continuity of Care Document ---
Author Author NORMAN VELA, Yoni CHAVIS [facility] Organization Unknown Address [address] [place] [address] Phone [phone] Care Team Providers Care Rn Pool Name Role Phone Ada Baugh AUTM [phone] Denis Chauhan M.D. AUTM [phone] Problems Description No Information Available Social History [...] 1.5mg/0.5ML Solution Pen -Inject Inject 1.5MG Weekly Deins Chauhan M.D. 00 Nifedipine ER Osmotic Release [...]
--- OUTSIDE RECORDS SUMMARY | 2021-06-30 07:02 | CCD | Continuity of Care Document ---
Author Author Yoni MATHUR MD, CHI KIM Organization Unknown Address [address] [place] [address] Phone [phone] Care Team Providers Care Shoulder Puncher Name Role Phone Ada Baugh AUTM [phone] Denis Chauhan M.D. AUTM [phone] Problems Description No Information Available Social History [...] H70.12 Sumanth cox MD 06/10/2021 Saline Nasal [place] 0.65% Solution 2 sprays to each nostril [...] lb BMI (Body Mass Index) 33.2 kg/m2 [place] Body Weight 160 lb Weight 102.060 kg BSA (Body Surface Area) 2.17 m2 05/06/2021 3:16pm Weight 225.00 lb Weight 102.060 kg Results Test Acquired Date Facility Test Result H/L Range Note BUN & Creatinine ([facility]) 06/01/2021 [facility] Main Lab [address] [place] [address] [phone] Blood Urea Nitrogen 16 mg/dL Normal 7-18 Creatinine With GFR 06/01/2021 [facility] nter Main Lab [address] [place], [place] [phone] Creatinine For GFR 1.30 mg/dL Normal 0.70-1.30 Glomerular Filtration Rate 58.4 Normal >49 1 1 Units are mL/min/1.73 m2 Chronic Kidney Disease Staging per NKF: Stage I & II GFR >=60 Normal to Mildly Decreased Stage III GFR 30-59 Moderately Decreased Stage IV GFR 15-29 Severely Decreased Stage V GFR <15 Very Little GFR Left ESRD GFR <15 on FIELD CROP FARMER Procedures Description No Information Available Medical Devices Description No Information Available Encounters Description No Information Available Assessments Date Code Description Provider 06/10/2021 H90.A32 [...] 10:15 am - Sumanth Mathur MD at [facility] 06/10/2021 - Sumanth Mathur MD* H90.A32 [...] to each nostril daily * Saline Nasal [place] 0.65 % - 2 sprays to each nostril 2-3 times a day and as needed * J31.0 Chronic rhinitis Functional Status Description No Information Available Mental Status Description No Information Available Referrals Description No Information Available
--- OUTSIDE RECORDS SUMMARY | 2021-06-30 07:02 | CCD | Continuity of Care Document ---
Author Author Yoni MATHUR MD, CHI KIM Organization Unknown Address [address] [place] [address] Phone [phone] Care Team Providers Care Grease Remover Name Role Phone Ada Baugh AUTM [phone] Denis Chauhan M.D. AUTM [phone] Problems Description No Information Available Social History [...] H70.12 Sumanth cox MD 06/10/2021 Saline Nasal [place] 0.65% Solution 2 sprays to each nostril [...] lb BMI (Body Mass Index) 33.2 kg/m2 [place] Body Weight 160 lb Weight 102.060 kg BSA (Body Surface Area) 2.17 m2 05/06/2021 3:16pm Weight 225.00 lb Weight 102.060 kg Results Test Acquired Date Facility Test Result H/L Range Note BUN & Creatinine ([facility]) 06/01/2021 [facility] Main Lab [address] [place] [address] [phone] Blood Urea Nitrogen 16 mg/dL Normal 7-18 Creatinine With GFR 06/01/2021 [facility] nter Main Lab [address] [place], [place] [id number] [phone] Creatinine For GFR 1.30 mg/dL Normal 0.70-1.30 Glomerular Filtration Rate 58.4 Normal >49 1 1 Units are mL/min/1.73 m2 Chronic Kidney Disease Staging per NKF: Stage I & II GFR >=60 Normal to Mildly Decreased Stage III GFR 30-59 Moderately Decreased Stage IV GFR 15-29 Severely Decreased Stage V GFR <15 Very Little GFR Left ESRD GFR <15 on HOSPITALIST PROGRAM DIRECTOR Procedures Description No Information Available Medical Devices [...] 10:15 am - Sumanth Mathur MD at [facility] 06/10/2021 - Sumanth Mathur MD* H90.A32 [...] to each nostril daily * Saline Nasal [place] 0.65 % - 2 sprays to each nostril 2-3 times a day and as needed * J31.0 Chronic rhinitis Functional Status Description No Information Available Mental Status Description No Information Available Referrals Description No Information Available
--- OUTSIDE RECORDS SUMMARY | 2021-06-30 07:02 | CCD | Continuity of Care Document ---
Author Author Yoni MATHUR MD, CHI KIM Organization Unknown Address [address] [place] [address] Phone [phone] Care Team Providers Care It Analyst Name Role Phone Ada Baugh AUTM [phone] Denis Chauhan M.D. AUTM [phone] Problems Description No Information Available Social History [...] H70.12 Sumanth cox MD 06/10/2021 Saline Nasal [place] 0.65% Solution 2 sprays to each nostril [...] lb BMI (Body Mass Index) 33.2 kg/m2 [place] Body Weight 160 lb Weight 102.060 kg BSA (Body Surface Area) 2.17 m2 05/06/2021 3:16pm Weight 225.00 lb Weight 102.060 kg Results Test Acquired Date Facility Test Result H/L Range Note BUN & Creatinine ([facility]) 06/01/2021 [facility] Main Lab [address] [place] [address] [phone] Blood Urea Nitrogen 16 mg/dL Normal 7-18 Creatinine With GFR 06/01/2021 [facility] nter Main Lab [address] [place], [place] [phone] Creatinine For GFR 1.30 mg/dL Normal 0.70-1.30 Glomerular Filtration Rate 58.4 Normal >49 1 1 Units are mL/min/1.73 m2 Chronic Kidney Disease Staging per NKF: Stage I & II GFR >=60 Normal to Mildly Decreased Stage III GFR 30-59 Moderately Decreased Stage IV GFR 15-29 Severely Decreased Stage V GFR <15 Very Little GFR Left ESRD GFR <15 on DOULA Procedures Description No Information Available Medical Devices [...] am - Sumanth Mathur MD at [facility] 06/10/2021 - Sumanth Mathur MD* [...] to each nostril daily * Saline Nasal [place] 0.65 % - 2 sprays to each nostril 2-3 times a day and as needed * J31.0 Chronic rhinitis Functional Status Description No Information Available Mental Status Description No Information Available Referrals Description No Information Available
--- OUTSIDE RECORDS SUMMARY | 2021-06-30 07:02 | CCD | Continuity of Care Document ---
Author Author Yoni BETTENCOURT P.C. Organization Unknown Address [address] [place] [address] Phone [phone] Care Team Providers Care Pipe Recovery Specialist Name Role Phone DENIS CHAUHAN M.D. PChalo AUTM [phone] Social History Type Date Description Comments Sex [...] Chauhan M.D., P.C. Freestyle Lite Test Strips Formerly [facility] Glimepiride 4mg Tablets Take 2 tablets by [...] H/L Range Note Laboratory test finding 04/06/[address] [address] [phone] Hgba1c 9.2 % High 4.4 - 6.1 1 Urinalysis 04/06/[address] [address] [phone] Urinalysis (SEE NOTE) 2 Source R Color yellow Normal: Yellow Clarity clear Normal: Clear Spec [place] 1.020 1.001 - 1.030 pH 5 5 - 9 Glucose 1000 Abnormal Normal: Negative Bilirubin NEG Normal: Negative Ketone NEG Normal: Negative Protein NEG Normal: Negative Nitrite NEG Normal: Negative Blood NEG Normal: Negative Leuk Est NEG Normal: Negative Urobilinogen NOR less than 1.0 mg/dL Microscopic Not Indicate Laboratory test finding 04/06/2021 [facility] [address] [place] [address] [phone] PSA - Diagnostic 0.97 ng/mL 0.00 - 4.00 3 Cve Panel 04/06/2021 [facility] [address] [place] [address] [phone] Cve Panel (SEE NOTE) 4 Cholesterol 112 mg/dL Low 131 - 200 Triglycerides 283 mg/dL High 35 - 160 HDL 27 mg/dL Low 29 - 86 LDL 67 mg/dL 65 - 175 Risk Factor 4.1 3.4 - 4.9 LDL/HDL 2.48 1.00 - 3.55 5 Comprehensive Metabolic Panel 04/06/2021 [facility] [address] [place] [address] [phone] Comprehensive Metabo (SEE NOTE) 6 Sodium 134 [...] >60 mL/min 7 Laboratory test finding 04/06/[address] [address] [phone] Cea 3.7 ng/mL 0.0-4.7 8 Culture Urine 04/06/2021 [place] [address] [phone] Culture Urine (SEE NOTE) 9 CBC W/Automated Diff 01/03/2021 [place] [address] [phone] CBC W/Automated Diff (SEE NOTE) 10 WBC [...] Lymph 23.6 % Low 25.0 - 40.0 [place] 7.8 % 3.0 - 8.0 Eos 6.0 % 0.0 - 7.0 Baso 0.9 % 0.0 - 2.0 %Ig 0.2 % High 0.0 - 0.0 %NRBC 0.0 % 0.0 - 0.0 #Neut 5.20 10^3/uL 2.00 - 6.90 #Lymph 2.00 10^3/uL 0.60 - 3.40 #[place] 0.66 10^3/uL 0.00 - 0.90 #Eos 0.51 10^3/uL 0.00 - 0.70 #Baso 0.08 10^3/uL 0.00 - 0.20 #Ig 0.02 10^3/uL 0.00 - 0.10 #NRBC 0.00 10^3/uL 0.00 - 0.00 Manual Diff NOT INDICATED RBC Morph NOT INDICATED Laboratory test finding 01/03/[address] [id number] [phone] Hgba1c 9.2 % High 4.4 - 6.1 11 Cve Panel 01/03/[address] [address] [phone] Cve Panel (SEE NOTE) 12 Cholesterol 123 mg/dL Low 131 - 200 Triglycerides 183 mg/dL High 35 - 160 HDL 32 mg/dL 29 - 86 LDL 79 mg/dL 65 - 175 Risk Factor 3.8 3.4 - 4.9 LDL/HDL 2.47 1.00 - 3.55 13 Laboratory test finding 01/03/[address] [address] [phone] CRP (High Sensitivity) 3.73 mg/L High 1.00 - 3. 00 14 Comprehensive Metabolic Panel 01/03/2021 [facility] [address] [place] [address] [phone] Comprehensive Metabo (SEE NOTE) 15 Sodium 136 [...] >60 mL/min 16 Laboratory test finding 01/03/[address] [address] [phone] Ana M Ifa Negative 17 1 {A1] [...] absence of malignant disease. 9 _CULTURE URINE_ ^$[id number] ^^[id number] $$685160 ^^395779 $$502375 $$318121 $$326550 $$446656 $$912978 $$654133 $$692096 $$147776 $$737507 $$770528 $$163999 $$138760 $$563101 $$855169 $$976701 $$523937 $$786471 $$264270 $$239491 $$542278 $$439020 $$612244 $$204988 ^^441820 $$815618 $$549106 $$712958 -- Continued on next page -- Patient: DIAMOND Mack Order: [id number] Page 2 Culture: CULTURE URINE Status: Final -- Continued on next page -- Patient: DIAMOND Mack Order: [id number] Page 2 Culture: CULTURE URINE Status: Prelim $$[id number] $$[id number] REPORTED DATE/TIME: 04/09/2021 14:06 Culture: CULTURE URINE Status: Final Urine Culture,Comprehensive: P1 No growth in 36 - 48 hours. Previous result entered on 04/08/2021 13:44 ET No growth after 18-24 hours. P1 Test performed by: [facility] #: [id number] [address] [place] [address] [id number] [facility] [address] Supervisor Malted Milk : Bijan Yang MD NPI #: Spot Cleaner : 04/08/21.1456.XMT.SENT REF 04/09/21.2012.XMT.SENT REF 04/11/21.1140.XMT.SENT REF 04/11/21.1140. .to [facility] via mode m 10 COMPLETE BLOOD COUNT [...] Positive >1:80 Procedures Date Code Description Status 04/01/2021 43506 Office/Outpatient Established Mo d MDM 30-39 Min Completed 12/31/2020 87109 Office/Outpatient Established Mo d MDM 30-39 Min Completed Encounters Type Date Location Provider Dx Diagnosis Office Visit 04/01/2021 11:30a [facility] Denis Chauhan M.D., P .C. I11.9 Hypertensive heart disease without heart failure E11.9 Type 2 diabetes mellitus wit hout complications E78.5 Hyperlipidemia, unspecified E66.9 Obesity, unspecified Office Visit 12/31/2020 10:15a [facility] Denis Chauhan M.D., P .C. I11.9 Hypertensive heart disease without heart failure E10.9 Type 1 diabetes mellitus wit hout complications L23.9 Allergic contact dermatitis, unspecified cause Assessments Date Code Description Provider 04/01/2021 I11.9 Hypertensive heart disease witho ut heart failure Denis Chauhan M.D[facility] 04/01/2021 E11.9 Type 2 diabetes mellitus without complications Denis Chauhan M.D[facility] P.[facility] 04/01/2021 E78.5 Hyperlipidemia, unspecified Brannon Chauhan M.D., P.C. 04/01/2021 E66.9 Obesity, unspecified Denis cavanaugh M.D., P.C. 12/31/2020 I11.9 Hypertensive heart disease witho ut heart failure Denis Chauhan M.D., P.[facility] 12/31/2020 E10.9 Type 1 diabetes mellitus without complications Denis Chauhan M.D., P.[facility]. 12/31/2020 L23.9 Allergic contact dermatitis, uns pecified cause Denis Chauhan M.D., P.C.
--- OUTSIDE RECORDS SUMMARY | 2021-06-30 07:03 | CCD | Continuity of Care Document ---
Author Author Yoni BETTENCOURT P.CDivina Organization Unknown Address [address] [place] [address] Phone [phone] Care Team Providers Care Seed Laboratory Assistant Name Role Phone Mere BETTENCOURT AUTM [phone] Social History Type Date Description Comments Sex Unknown Medications Active Medications SIG Qnty Indications Ordering Provide r Date Aspirin [address] 1 by [...] M.D., P.C. Freestyle Lite Test Strips Formerly [facility] Glimepiride 4mg Tablets Take 2 tablets by mouth once daily 180tabs Denis Chauhan M.D., P.C. Medications Administered in Office Medication SIG Qnty Indications Ordering Provider Date Technetium TC 99M Sestamibi Injection Denis Chauhan M.D., P.C. 09/12/2018 Vital Signs Date Vital Result Comment 04/01/2021 11:23am Height 69 inches 5'9" Weight 225.12 lb BMI (Body Mass Index) 33.2 kg/m2 Body Temperature 98.1 F BP Systolic 145 mmHg BP Diastolic 86 mmHg Heart Rate 85 /min O2 % BldC Oximetry 98 % Respiratory Rate 18 /min 12/31/2020 10:15am Height 69 inches 5'9" Weight 223.50 lb BMI (Body Mass Index) 33.0 kg/m2 Body Temperature 97.7 F BP Systolic 132 mmHg BP Diastolic 71 mmHg Heart Rate 80 /min O2 % BldC Oximetry 98 % Respiratory Rate 18 /min Results Test Acquired Date Facility Test Result H/L Range Note Laboratory test finding 04/06/[address] [address] [phone] Hgba1c 9.2 % High 4.4 - 6.1 1 Urinalysis 04/06/[address] 1330700 [phone] Urinalysis (SEE NOTE) 2 Source R Color yellow Normal: Yellow Clarity clear Normal: Clear Spec [place] 1.020 1.001 - 1.030 pH 5 5 - 9 Glucose 1000 Abnormal Normal: Negative Bilirubin NEG Normal: Negative Ketone NEG Normal: Negative Protein NEG Normal: Negative Nitrite NEG Normal: Negative Blood NEG Normal: Negative Leuk Est NEG Normal: Negative Urobilinogen NOR less than 1.0 mg/dL Microscopic Not Indicate Laboratory test finding 04/06/2021 [place] [address] [phone] PSA - Diagnostic 0.97 ng/mL 0.00 - 4.00 3 Cve Panel 04/06/2021 [place] [address] [phone] Cve Panel (SEE NOTE) 4 Cholesterol 112 mg/dL Low 131 - 200 Triglycerides 283 mg/dL High 35 - 160 HDL 27 mg/dL Low 29 - 86 LDL 67 mg/dL 65 - 175 Risk Factor 4.1 3.4 - 4.9 LDL/HDL 2.48 1.00 - 3.55 5 Comprehensive Metabolic Panel 04/06/2021 [facility] [address] [place] [address] [phone] Comprehensive Metabo (SEE NOTE) 6 Sodium 134 [...] >60 mL/min 7 Laboratory test finding 04/06/2021 [place] [id number] [phone] Cea 3.7 ng/mL 0.0-4.7 8 CBC W/Automated Diff 01/03/2021 [place] [address] [phone] CBC W/Automated Diff (SEE NOTE) 9 WBC 8.5 10^3/uL 4.2 - 11.0 RBC [...] Lymph 23.6 % Low 25.0 - 40.0 [place] 7.8 % 3.0 - 8.0 Eos 6.0 % 0.0 - 7.0 Baso 0.9 % 0.0 - 2.0 %Ig 0.2 % High 0.0 - 0.0 %NRBC 0.0 % 0.0 - 0.0 #Neut 5.20 10^3/uL 2.00 - 6.90 #Lymph 2.00 10^3/uL 0.60 - 3.40 #[place] 0.66 10^3/uL 0.00 - 0.90 #Eos 0.51 10^3/uL 0.00 - 0.70 #Baso 0.08 10^3/uL 0.00 - 0.20 #Ig 0.02 10^3/uL 0.00 - 0.10 #NRBC 0.00 10^3/uL 0.00 - 0.00 Manual Diff NOT INDICATED RBC Morph NOT INDICATED Laboratory test finding 01/03/2021 [place] [address] [phone] Hgba1c 9.2 % High 4.4 - 6.1 10 Cve Panel 01/03/2021 [place] [address] [phone] Cve Panel (SEE NOTE) 11 Cholesterol 123 mg/dL Low 131 - 200 Triglycerides 183 mg/dL High 35 - 160 HDL 32 mg/dL 29 - 86 LDL 79 mg/dL 65 - 175 Risk Factor 3.8 3.4 - 4.9 LDL/HDL 2.47 1.00 - 3.55 12 Laboratory test finding [facility]03[facility] [address] [place] [address] [phone] CRP (High Sensitivity) 3.73 mg/L High 1.00 - 3. 00 13 Comprehensive Metabolic Panel 01/03/2021 [facility] [address] [place] [address] [phone] Comprehensive Metabo (SEE NOTE) 14 Sodium 136 mEq/L 134 - 153 Potassium [...] >60 mL/min Afr Amer GFR >60 mL/min 15 Laboratory test finding 01/03/2021 [facility] [address] [place] [address] [phone] Ana M Ifa Negative 16 1 {A1] {HB] 2 URINALYSIS 3 \\BLDo\\PSA [...] presence or absence of malignant disease. 9 COMPLETE BLOOD COUNT 10 {A1] {HB] 11 LIPID PANEL 12 CVE RISK CHOL/HDL LDL/HDL MEN: 1/2 AVERAGE 3.43 1.00 AVERAGE 4.97 3.55 2X AVERAGE 9.55 6.25 3X AVERAGE 23.99 7.99 WOMEN: 1/2 AVERAGE 3.27 1.47 AVERAGE 4.44 3.22 2X AVERAGE 7.05 5.03 3X AVERAGE 11.04 6.14 13 CDC/S HS-CRP CUT-OFF: RELATIVE RISK: <1.0 mg/L Low 1.0 - 3.0 mg/L A verage >3.0 mg/L High Optimally, the average of HS-CRP results repeated two weeks apart should be used for risk assessment. 14 COMPREHENSIVE METABOLIC PANE L 15 Male GFR Interprentation 20-49 yrs >60 mL/min Normal 50-59 yrs >56 mL/min Normal 60-69 yrs >49 mL/min Normal 70-79yrs >42 mL/min Normal 80 and above >35 mL/min Normal Female GFR Interpretation 20-39 yrs >60 mL/min Normal 40-49 yrs >58 mL/min Normal 50-59 yrs >51 mL/min Normal 60-69 yrs >45 mL/min Normal 70-79 yrs >39 mL/min Normal 80 and above >32 mL/min Normal 16 Negative <1:80 Borderline 1:80 Positive >1:80 Procedures Date Code Description Status 04/01/2021 12480 Office/Outpatient Established Mo d MDM 30-39 Min Completed 12/31/2020 62298 Office/Outpatient Established Mo d MDM 30-39 Min Completed Encounters Type Date Location Provider Dx Diagnosis Office Visit 04/01/2021 11:30a [facility] Denis Chauhan M.D., P .C. I11.9 Hypertensive heart disease without heart failure E11.9 Type 2 diabetes mellitus wit hout complications E78.5 Hyperlipidemia, unspecified E66.9 Obesity, unspecified Office Visit 12/31/2020 10:15a [facility] Denis Chauhan M.D., P .C. I11.9 [...] uns pecified cause Denis Chauhan M.D., P.C. Plan of Treatment Future Appointment(s):* 05/06/2021 10:15 thien - Denis Chauhan M.D., P.C. at [facility]
--- OUTSIDE RECORDS SUMMARY | 2021-06-30 07:03 | CCD | Continuity of Care Document ---
Author Author Yoni BETTENCOURT P.CDivina Organization Unknown Address [address] [place] [address] Phone [phone] Care Team Providers Care Welder Production Line Combination Name Role Phone Mere BETTENCOURT AUTM [phone] Social History Type Date Description Comments Sex [...] M.D., P.C. Freestyle Lite Test Strips Formerly [facility] Glimepiride 4mg Tablets Take 2 tablets by [...] H/L Range Note Laboratory test finding 04/06/[address] [address] [phone] Hgba1c 9.2 % High 4.4 - 6.1 1 Urinalysis 04/06/[address] 3321160 [phone] Urinalysis (SEE NOTE) 2 Source R Color yellow Normal: Yellow Clarity clear Normal: Clear Spec [place] 1.020 1.001 - 1.030 pH 5 5 - 9 Glucose 1000 Abnormal Normal: Negative Bilirubin NEG Normal: Negative Ketone NEG Normal: Negative Protein NEG Normal: Negative Nitrite NEG Normal: Negative Blood NEG Normal: Negative Leuk Est NEG Normal: Negative Urobilinogen NOR less than 1.0 mg/dL Microscopic Not Indicate Laboratory test finding 04/06/2021 [place] [address] [phone] PSA - Diagnostic 0.97 ng/mL 0.00 - 4.00 3 Cve Panel 04/06/2021 [place] [address] [phone] Cve Panel (SEE NOTE) 4 Cholesterol 112 mg/dL Low 131 - 200 Triglycerides 283 mg/dL High 35 - 160 HDL 27 mg/dL Low 29 - 86 LDL 67 mg/dL 65 - 175 Risk Factor 4.1 3.4 - 4.9 LDL/HDL 2.48 1.00 - 3.55 5 Comprehensive Metabolic Panel 04/06/2021 [facility] [address] [place] [address] [phone] Comprehensive Metabo (SEE NOTE) 6 Sodium 134 [...] >60 mL/min 7 Laboratory test finding 04/06/2021 [place] 2765134 [phone] Cea 3.7 ng/mL 0.0-4.7 8 Culture Urine 04/06/2021 [place] [address] [phone] Culture Urine (SEE NOTE) 9 CBC W/Automated Diff 01/03/2021 [place] [id number] [phone] CBC W/Automated Diff (SEE NOTE) 10 WBC [...] Lymph 23.6 % Low 25.0 - 40.0 [place] 7.8 % 3.0 - 8.0 Eos 6.0 % 0.0 - 7.0 Baso 0.9 % 0.0 - 2.0 %Ig 0.2 % High 0.0 - 0.0 %NRBC 0.0 % 0.0 - 0.0 #Neut 5.20 10^3/uL 2.00 - 6.90 #Lymph 2.00 10^3/uL 0.60 - 3.40 #[place] 0.66 10^3/uL 0.00 - 0.90 #Eos 0.51 10^3/uL 0.00 - 0.70 #Baso 0.08 10^3/uL 0.00 - 0.20 #Ig 0.02 10^3/uL 0.00 - 0.10 #NRBC 0.00 10^3/uL 0.00 - 0.00 Manual Diff NOT INDICATED RBC Morph NOT INDICATED Laboratory test finding 01/03/[address] [address] [phone] Hgba1c 9.2 % High 4.4 - 6.1 11 Cve Panel 01/03/[address] [address] [phone] Cve Panel (SEE NOTE) 12 Cholesterol 123 mg/dL Low 131 - 200 Triglycerides 183 mg/dL High 35 - 160 HDL 32 mg/dL 29 - 86 LDL 79 mg/dL 65 - 175 Risk Factor 3.8 3.4 - 4.9 LDL/HDL 2.47 1.00 - 3.55 13 Laboratory test finding 01/03/2021 [place] 2765164 [phone] CRP (High Sensitivity) 3.73 mg/L High 1.00 - 3. 00 14 Comprehensive Metabolic Panel 01/03/2021 [facility] [address] [place] [address] [phone] Comprehensive Metabo (SEE NOTE) 15 Sodium 136 [...] >60 mL/min 16 Laboratory test finding 01/03/[address] [address] [phone] Ana M Ifa Negative 17 1 {A1] [...] absence of malignant disease. 9 _CULTURE URINE_ ^$923274 ^^438122 $$544313 ^^536719 $$387280 $$575034 $$505926 $$486096 $$677030 $$870252 $$348988 $$201454 $$270076 $$914638 $$474535 $$414002 $$990597 $$561666 $$929584 $$675056 $$728555 $$433052 $$049829 $$849945 $$217687 $$329486 $$715474 ^^505801 $$588929 $$793107 $$894500 -- Continued on next page -- Patient: DIAMOND Mack Order: [id number] Page 2 Culture: CULTURE URINE Status: Final -- Continued on next page -- Patient: DIAMOND Mack Order: [id number] Page 2 Culture: CULTURE URINE Status: Prelim $$[id number] $$[id number] REPORTED DATE/TIME: 04/09/2021 14:06 Culture: CULTURE URINE Status: Final Urine Culture,Comprehensive: P1 No growth in 36 - 48 hours. Previous result entered on 04/08/2021 13:44 ET No growth after 18-24 hours. P1 Test performed by: [facility] #: [id number] [address] [place] [address] [id number] [facility] [address] Wood Polisher : Bijan Yang MD NPI #: Rug Renovator : 04/08/21.1456.XMT.SENT REF 04/09/21.2012.XMT.SENT REF 04/11/21.1140.XMT.SENT REF 04/11/21.1140. .to [facility] via mode m 10 COMPLETE BLOOD COUNT [...] >1:80 Procedures Date Code Description Status 04/01/2021 77492 Office/Outpatient Established Mo d MDM 30-39 Min Completed 12/31/2020 34080 Office/Outpatient Established Mo d MDM 30-39 Min Completed Encounters Type Date Location Provider Dx Diagnosis Office Visit 04/01/2021 11:30a [facility] Denis Chauhan M.D., P .C. I11.9 Hypertensive heart disease without heart failure E11.9 Type 2 diabetes mellitus wit hout complications E78.5 Hyperlipidemia, unspecified E66.9 Obesity, unspecified Office Visit 12/31/2020 10:15a [facility] Denis Chauhan M.D., P .C. I11.9 [...] Plan of Treatment Future Appointment(s):* 05/06/2021 10:15 am - Denis Chauhan [facility] at [facility]
--- OUTSIDE RECORDS SUMMARY | 2021-06-30 07:03 | CCD ---
Author Author [facility] Organization [facility] Address Unknown Phone Unavailable Care Team Providers Care Elevators Inspector Name Role Phone JASON CHAUHAN MD Unavailable Unavailable HARRYMARITZAQBOADRIANNE HERRERA MD Unavailable Unavailable HARRYMARITZAQBOADRIANNE HERRERA MD Unavailable Unavailable HARRYPAULBOADRIANNE HERRERA MD Unavailable Unavailable HARRYJASON MD Unavailable Unavailable HARRYPAULBOADRIANNE HERRERA MD Unavailable Unavailable HARRYJASON MD Unavailable Unavailable HARRYPAULBOADRIANNE HERRERA MD Unavailable Unavailable HARRYJASON MD Unavailable Unavailable HARRYPAULBOADRIANNE HERRERA MD Unavailable Unavailable HARRYMARITZAQBOADRIANNE HERRERA MD Unavailable Unavailable HARRYMARITZAQBOOL JAVIER VELA Unavailable Unavailable HARRYMARITZAQBOADRIANNE HERRERA MD Unavailable Unavailable HARRYMARITZAQBOADRIANNE HERRERA MD Unavailable Unavailable HARRYPAULBOADRIANNE HERRERA MD Unavailable Unavailable HARRYMARITZAQBOADRIANNE HERRERA MD Unavailable Unavailable HARRY MAQBOADRIANNE HERRERA MD Unavailable Unavailable HARRYMARITZAQBOADRIANNE HERRERA MD Unavailable Unavailable HARRY MAQBOADRIANNE HERRERA MD Unavailable Unavailable HARRY MAQBOOL JAVIER MD Unavailable Unavailable HARRY, MAQBOOL JAVIER MD Unavailable Unavailable HARRY, MAQBOOL JAVIER MD Unavailable Unavailable HARRY, MAQBOOL JAVIER MD Unavailable Unavailable HARRY, MAQBOOL JAVIER MD Unavailable Unavailable HARRY, MAQBOOL JAVIER MD Unavailable Unavailable HARRY, MAQBOOL JAVIER MD Unavailable Unavailable HARRY, MAQBOOL JAVIER MD Unavailable Unavailable HARRY, MAQBOOL JAVIER MD Unavailable Unavailable HARRY, MAQBOOL JAVIER MD Unavailable Unavailable HARRY, MAQBOOL JAVIER MD Unavailable Unavailable HARRY, MAQBOOL JAVIER MD Unavailable Unavailable HARRY, MAQBOOL JAVIER MD Unavailable Unavailable HARRY, MAQBOOL JAVIER MD Unavailable Unavailable HARRY, MAQBOOL JAVIER MD Unavailable Unavailable HARRY, MAQBOOL JAVIER MD Unavailable Unavailable HARRY, MAQBOOL JAVIER MD Unavailable Unavailable HARRY, MAQBOOL JAVIER MD Unavailable Unavailable HARRY, MAQBOOL JAVIER MD Unavailable Unavailable HARRY, MAQBOOL JAVIER MD Unavailable Unavailable HARRY, MAQBOOL JAVIER MD Unavailable Unavailable HARRY, MAQBOOL JAVIER MD Unavailable Unavailable HARRY, MAQBOOL JAVIER MD Unavailable Unavailable HARRY, MAQBOOL JAVIER MD Unavailable Unavailable HARRY, MAQBOOL JAVIER MD Unavailable Unavailable HARRY, MAQBOOL JAVIER MD Unavailable Unavailable HARRY, MAQBOOL JAVIER MD Unavailable Unavailable HARRY, MAQBOOL JAVIER MD Unavailable Unavailable HARRY, MAQBOOL JAVIER MD Unavailable Unavailable HARRY, MAQBOOL JAVIER MD Unavailable Unavailable HARRY, MAQBOOL JAVIER MD Unavailable Unavailable HARRY, MAQBOOL JAVIER MD Unavailable Unavailable HARYR, MAQBOOL JAVIER MD Unavailable Unavailable HARRY, MAQBOOL JAVIER MD Unavailable Unavailable HARRY, MAQBOOL JAVIER MD Unavailable Unavailable HARRY, MAQBOOL JAVIER MD Unavailable Unavailable HARRY, MAQBOOL JAVIER MD Unavailable Unavailable HARRY, MAQBOOL JAVIER MD Unavailable Unavailable HARRY, MAQBOOL JAVIER MD Unavailable Unavailable HARRY, MAQBOOL JAVIER MD Unavailable Unavailable HARRY, MAQBOOL JAVIER MD Unavailable Unavailable HARRY, MAQBOOL JAVIER MD Unavailable Unavailable HARRY, MAQBOOL JAVIER MD Unavailable Unavailable HARRY, MAQBOOL JAVIER MD Unavailable Unavailable HARRY, MAQBOOL JAVIER MD Unavailable Unavailable HARRY, MAQBOOL JAVIER MD Unavailable Unavailable HARRY, MAQBOOL JAVIER MD Unavailable Unavailable HARRY, MAQBOOL JAVIER MD Unavailable Unavailable HARRY, MAQBOOL JAVIER MD Unavailable Unavailable HARRY, MAQBOOL JAVIER MD Unavailable Unavailable HARRY, MAQBOOL JAVIER MD Unavailable Unavailable HARRY, MAQBOOL JAVIER MD Unavailable Unavailable HARRY, MAQBOOL JAVIER MD Unavailable Unavailable HARRY, MAQBOOL JAVIER MD Unavailable Unavailable HARRY, MAQBOOL JAVIER MD Unavailable Unavailable HARRY, MAQBOOL JAVIER MD Unavailable Unavailable HARRY, MAQBOOL JAVIER MD Unavailable Unavailable HARRY, MAQBOOL JAVIER MD Unavailable Unavailable HARRY, MAQBOOL JAVIER MD Unavailable Unavailable Mercedez MATHUR MD Unavailable Unavailable Mercedez MATHUR MD Unavailable Unavailable Mercedez MATHUR MD Unavailable Unavailable Mercedez MATHUR MD Unavailable Unavailable Mercedez MATHUR MD Unavailable Unavailable Mercedez MATHUR MD Unavailable Unavailable NORMANMercedez MD Unavailable Unavailable Mercedez MATHUR MD Unavailable Unavailable Mercedez MATHUR MD Unavailable Unavailable Mercedez MATHUR MD Unavailable Unavailable Mercedez MATHUR MD Unavailable Unavailable NORMANMercedez MD Unavailable Unavailable NORMANMercedez MD Unavailable Unavailable NORMANMercedez MD Unavailable Unavailable Mercedez MATHUR MD Unavailable Unavailable NORMANMercedez MD Unavailable Unavailable Mercedez MATHUR MD Unavailable Unavailable Mercedez MATHUR MD Unavailable Unavailable Mercedez MATHUR MD Unavailable Unavailable NORMANMercedez MD Unavailable Unavailable NORMANMercedez MD Unavailable Unavailable NORMANMercedez MD Unavailable Unavailable NORMANMercedez MD Unavailable Unavailable NORMANMercedez MD Unavailable Unavailable NORMANMercedez MD Unavailable Unavailable NORMANMercedez MD Unavailable Unavailable NORMANMercedez MD Unavailable Unavailable NORMANMercedez MD Unavailable Unavailable Mercedez MATHUR MD Unavailable Unavailable Mercedez MATHUR MD Unavailable Unavailable Mercedez MATHUR MD Unavailable Unavailable Mercedez MATHUR MD Unavailable Unavailable Mercedez MATHUR MD Unavailable Unavailable Mercedez MATHUR MD Unavailable Unavailable HARRY, MAQBOOL JAVIER MD Unavailable Unavailable HARRY, MAQBOOL JAVIER MD Unavailable Unavailable HARRY, MAQBOOL JAVIER MD Unavailable Unavailable HARRY, MAQBOOL JAVIER MD Unavailable Unavailable HARRY, MAQBOOL JAVIER MD Unavailable Unavailable HARRY, MAQBOOL JAVIER MD Unavailable Unavailable HARRY, MAQBOOL JAVIER MD Unavailable Unavailable HARRY, MAQBOOL JAVIER MD Unavailable Unavailable HARRY, MAQBOOL JAVIER MD Unavailable Unavailable HARRY, MAQBOOL JAVIER MD Unavailable Unavailable HARRY, MAQBOOL JAVIER MD Unavailable Unavailable HARRY, MAQBOOL JAVIER MD Unavailable Unavailable HARRY, MAQBOOL JAVIER MD Unavailable Unavailable HARRY, MAQBOOL JAVIER MD Unavailable Unavailable HARRY, MAQBOOL JAVIER MD Unavailable Unavailable HARRY, MAQBOOL JAVIER MD Unavailable Unavailable HARRY, MAQBOOL JAVIER MD Unavailable Unavailable HARRY, MAQBOOL JAVIER MD Unavailable Unavailable HARRY, MAQBOOL JAVIER MD Unavailable Unavailable HARRY, MAQBOOL JAVIER MD Unavailable Unavailable HARRY, MAQBOOL JAVIER MD Unavailable Unavailable HARRY, MAQBOOL JAVIER MD Unavailable Unavailable HARRY, MAQBOOL JAVIER MD Unavailable Unavailable HARRY, MAQBOOL JAVIER MD Unavailable Unavailable HARRY, MAQBOOL JAVIER MD Unavailable Unavailable HARRY, MAQBOOL JAVIER MD Unavailable Unavailable HARRY, MAQBOOL JAVIER MD Unavailable Unavailable HARRY, MAQBOOL JAVIER MD Unavailable Unavailable HARRY, MAQBOOL JAVIER MD Unavailable Unavailable HARRY, MAQBOOL JAVIER MD Unavailable Unavailable HARRY, MAQBOOL JAVIER MD Unavailable Unavailable HARRY, MAQBOOL JAVIER MD Unavailable Unavailable HARRY, MAQBOOL JAVIER MD Unavailable Unavailable HARRY, MAQBOOL JAVIER MD Unavailable Unavailable HARRY, MAQBOOL JAVIER MD Unavailable Unavailable HARRY, MAQBOOL JAVIER MD Unavailable Unavailable HARRY, MAQBOOL JAVIER MD Unavailable Unavailable HARRY, MAQBOOL JAVIER MD Unavailable Unavailable HARRY, MAQBOOL JAVIER MD Unavailable Unavailable HARRY, MAQBOOL JAVIER MD Unavailable Unavailable HARRY, MAQBOOL JAVIER MD Unavailable Unavailable HRARY, MAQBOOL JAVIER MD Unavailable Unavailable HARRY, MAQBOOL JAVIER MD Unavailable Unavailable HARRY, MAQBOOL JAVIER MD Unavailable Unavailable HARRY, MAQBOOL JAVIER MD Unavailable Unavailable HARRY, MAQBOOL JAVIER MD Unavailable Unavailable HARRY, MAQBOOL JAVIER MD Unavailable Unavailable HARRY, MAQBOOL JAVIER MD Unavailable Unavailable HARRY, MAQBOOL JAVIER MD Unavailable Unavailable HARRY, MAQBOOL JAVIER MD Unavailable Unavailable HARRY, MAQBOOL JAVIER MD Unavailable Unavailable HARRY, MAQBOOL JAVIER MD Unavailable Unavailable HARRY, MAQBOOL JAVIER MD Unavailable Unavailable HARRY, MAQBOOL JAVIER MD Unavailable Unavailable HARRY, MAQBOOL JAVIER MD Unavailable Unavailable HARRY, MAQBOOL JAVIER MD Unavailable Unavailable HARRY, MAQBOOL JAVIER MD Unavailable Unavailable HARRY, MAQBOOL JAVIER MD Unavailable Unavailable HARRY, MAQBOOL JAVIER MD Unavailable Unavailable HARRY, MAQBOOL JAVIER MD Unavailable Unavailable HARRY, MAQBOOL JAVIER MD Unavailable Unavailable HARRY, MAQBOOL JAVIER MD Unavailable Unavailable HARRY, MAQBOOL JAVIER MD Unavailable Unavailable HARRY, MAQBOOL JAVIER MD Unavailable Unavailable HARRY, MAQBOOL JAVIER MD Unavailable Unavailable HARRY, MAQBOOL JAVIER MD Unavailable Unavailable HARRY, MAQBOOL JAVIER MD Unavailable Unavailable HARRY, MAQBOOL JAVIER MD Unavailable Unavailable HARRY, MAQBOOL JAVIER MD Unavailable Unavailable HARRY, MAQBOOL JAVIER MD Unavailable Unavailable HARRY, MAQBOOL JAVIER MD Unavailable Unavailable HARRY, MAQBOOL JAVIER MD Unavailable Unavailable HARRY, MAQBOOL JAVIER MD Unavailable Unavailable HARRY, PAULBOOL JAVIER MD Unavailable Unavailable HARRY, PAULBOOL JAVIER MD Unavailable Unavailable HARRY, MARITZAQBOOL JAVIER MD Unavailable Unavailable HARRY, MARITZAQBOOL JAVIER MD Unavailable Unavailable HARRY, PAULBOOL JAVIER MD Unavailable Unavailable Re-disclosure Warning The records that you are about to access may contain information from federally-assisted alcohol or drug abuse programs. If such information is present, then the following federally mandated warning applies: This information has been disclosed to you from records protected by federal confidentiality rules (42 CFR part 2). The federal rules prohibit you from making any further disclosure of this information unless further disclosure is expressly permitted by the written consent of the person to whom it pertains or as otherwise permitted by 42 CFR part 2. A general authorization for the release of medical or other information is NOT sufficient for this purpose. The Federal rules restrict any use of the information to criminally investigate or prosecute any alcohol or drug abuse patient.The records that you are about to access may contain highly sensitive health information, the redisclosure of which is protected by Article 27-F of the [facility] Public Health law. If you continue you may have access to information: Regarding HIV / AIDS; Provided by facilities licensed or operated by the [facility] Office of Mental Health; or Provided by the [facility] Office for People With Developmental Disabilities. If such information is present, then the following [facility] mandated warning applies: This information has been disclosed to you from confidential records which are protected by state law. State law prohibits you from making any further disclosure of this information without the specific written consent of the person to whom it pertains, or as otherwise permitted by law. Any unauthorized further disclosure in violation of state law may result in a fine or fpc sentence or both. A general authorization for the release of medical or other information is NOT sufficient authorization for further disc losure. Allergies and Adverse Reactions Type Description Substance Reaction Status Data Source(s ) Propensity to adverse reactions PENICILLINS (CLASS) PENICILLINS (CL ASS) [facility] Family History Family Member Name Family Member Gender Family Member Status Date o f Status Description Data Source(s) Unknown Female Problem [facility] ([facility]) Encounters Encounter Providers Location Date Indications Data Source(s ) Outpatient Attender: JAVIER CHAUHAN MD Medical Building 05/09 11:00:00 AM EDT [facility] (Javier Chauhan MD) Outpatient Attender: PALMIRA Mathur/Elvira/Galen/Oneida julio 05/06/2021 03:00:00 PM EDT [facility] ([facility] Outpatient Attender: JAVIER CHAUHAN MDConsultant: JAVIER Torres MD 04/06/2021 09:45:00 AM EDT - 04/06/2021 10:45:00 AM EDT [facility] Outpatient Attender: JAVIER CHAUHAN MD Medical [facility] 04/01 11:30:00 AM EDT [facility] (Javier Chauhan MD) Outpatient Attender: JAVIER CHAUHAN MDConsultant: JAVIER Torres MD 01/03/2021 09:45:00 AM EDT - 01/03/2021 10:45:00 AM EDT [facility] Outpatient Attender: JAVIER CHAUHAN MD Medical [facility] 12/31 10:15:00 AM EDT [facility] (Javier Chauhan MD) Outpatient Attender: JAVIER CHAUHAN MD Medical [facility] 10/07 09:45:00 AM EST [facility] (Javier Chauhan MD) Outpatient Attender: JAVIER CHAUHAN MD Medical [facility] 09/20 12:30:00 PM EST [facility] (Javier Chauhan MD) Outpatient Attender: JAVIER CHAUHAN MD Medical Building 09/03 10:00:00 AM EST [facility] (Javier Chauhan MD) Outpatient Attender: JAVIER CHAUHAN MD Medical Building 07/30 10:30:00 AM EST [facility] (Javeir Chauhan MD) Outpatient Attender: JAVIER CHAUHAN MD Medical Building 06/25 10:45:00 AM EDT [facility] (Javier Chauhan MD) Immunizations Vaccine Date Status Description Data Source(s) COVID-19 VACCINE Moderna 12/07/2020 12:00:00 AM EDT completed [facility] Vaccine Series Complete: YESThis Data wa s Submitted to [facility] Via [facility]. COVID-19 VACCINE Moderna 11/09/2020 12:00:00 AM EDT [facility]: NOThis Data was Submitted to [facility] Via [employer]. Medications Medication Brand Name Start Date Product Form Dose Route Admi nistrative Instructions Pharmacy Instructions Status Indications Reaction Description Data Source(s) Sodium Chloride 0.111 MEQ/ML Nasal Solution Saline Nasal Spr ay 06/10/2021 12:00:00 AM EDT active M EDENT ([facility], ) Fluticasone Propionate Fluticasone Propionate 06/10/2021 12:00:00 AM E DT active [facility] ([facility]) doxycycline hyclate 100 MG Oral Tablet Doxycycline Hyclate 1 12:00:00 AM EDT ORAL active [facility] ([facility]) Cephalexin 500 MG Oral Capsule [Keflex] Keflex 05/09/2021 12:00:0 0 AM EDT ORAL active [facility] (Christy Chauhan MD) valacyclovir 500 MG Oral Tablet [Valtrex] Valtrex 09/20/2020 1 2:00:00 AM EST ORAL active [facility] (Javier Chauhan MD) Aspirin 81 MG Delayed Release Oral Tablet Aspirin 81 2020 12:00:00 AM EST ORAL active [facility] ( Javier Chauhan MD) Hydroxyzine Hydrochloride 25 MG Oral Tablet Hydroxyzine HCL 09/20/2020 12:00:00 AM EST ORAL active [facility] (Christy Chauhan MD) Acyclovir 50 MG/ML Topical Cream [Zovirax] Zovirax 09/20/2020 12:00:00 AM EST active [facility] (Javier Chauhan MD) Betamethasone 0.0005 MG/MG Topical Ointment Betamethasone Di propionate 09/06/2020 12:00:00 AM EST active [facility] (Javier Chauhan MD) Insurance Providers Payer name Policy type / Coverage type Policy ID Covered libertarian ID Covered libertarian's relationship to dickens Policy [employer] Plan Information [employer] () Workers Compensation [id number] Self [id number] [employer] () Workers Compensation [id number] Self [id number] [employer] () Workers Compensation [id number] Self [id number] [employer] () Workers Compensation [id number] Self [id number] [employer] () Workers Compensation [id number] Self [id number] [employer] () Workers Compensation [id number] Self [id number] [employer] () Workers Compensation [id number] Self [id number] [employer] () Workers Compensation [id number] Teresita f Jamal () Workers Compensation [id number] Self [id number] [place] Workers Compensation [id number] Self [employer] Workers Compensation [id number] Self [id number] [employer] Workers Compensation [id number] Self [id number] [employer] Workers Compensation [id number] Self [id number] [employer] Workers Compensation [id number] Self [id number] [employer] Workers Compensation [id number] Self [id number] BLUE CROSS BLUE SHIELD -O/P [id number] 18 [id number] [employer] [id number] 18 [id number] [place] [id number] SP [id number] [employer]-RECURRING [id number] 18 [id number] [employer] [id number] SP [id number] [employer]-O/P [id number] 18 [id number] [employer] ([place]) [id number] SP [id number] [employer] P [id number] S [id number] [employer] P [id number] S [id number] [employer] P [id number] S [id number] [employer] P [id number] S [id number] [employer] -O/P [id number] 18 [id number] MEDICARE BLUE PPO 306 [id number] SP [id number] [employer]-O/P UNAVAILABLE UNAVAILA BLE [employer] WORKERS COMP [id number] SP [id number] [employer] WORKERS COMP SP MEDICARE BLUE PPO 306 [id number] SP [id number] [place] [id number] SP [id number] MEDICARE BLUE PPO 306 [id number] SP [id number] [place] PPO 302/307 [id number] SP [id number] BLUE CROSS BLUE SHIELD MCR -OP [id number] 18 [id number] BLUE CROSS BLUE SHIELD MCR -OP [id number] [employer] Workers Compensation [id number] Self [id number] Problems, Conditions, and Diagnoses Code Display Name Description Problem Type Effective Dates Data Source(s) E785 Hyperlipidemia, unspecified Hyperlipidemia, unspecifie d Diagnosis 04/06/2021 09:45:00 AM EDT [facility] N390 Urinary tract infection, site not specif ied Urinary tract infection, site not specified Diagnosis 04/06/2021 09:45:00 AM EDT [facility] R351 Nocturia Nocturia Diagnosis 04/06/2021 09:45:00 AM ED T [facility] E119 Type 2 diabetes mellitus without complic ations Type 2 diabetes mellitus without complications Diagnosis 04/06/2021 09:45:00 AM EDT [facility] D649 Anemia, unspecified Anemia, unspecified Diagnosis 0 01/03/2021 09:45:00 AM T [facility] L930 Discoid lupus erythematosus Discoid lupus erythematosu s Diagnosis 01/03/2021 09:45:00 AM T [facility] Surgeries/Procedures Procedure Description Date Indications Data Source(s) OFFICE OUTPATIENT VISIT 25 MINUTES 05/09/2021 12:00:00 AM EDT [facility] (Javier Chauhan MD) OFFICE OUTPATIENT NEW 45 MINUTES 05/06/2021 12:00:00 A M EDT [facility] ([facility], ) OFFICE OUTPATIENT VISIT 25 MINUTES 04/01/2021 12:00:00 AM EDT [facility]DAY (Javier Chauhan MD) OFFICE OUTPATIENT VISIT 25 MINUTES 12/31/2020 12:00:00 AM EDT SUNDAY (Javier Chauhan MD) OFFICE OUTPATIENT VISIT 25 MINUTES 10/07/2020 12:00:00 AM EST SUNDAY (Javier Chauhan MD) Results ID Date Data Source [id number] 06/25/2021 10:10:00 AM EDT [facility] Name Value Range Interpretation Code Description Data Anayeli rce(s) Supporting Document(s) SARS-CoV-2 (COVID-19) RNA [Presence] in Respiratory specimen by [facility] with probe detection Not Detected [facility] This lab was ordered by [facility] and reported by [facility]. ID Date Data Source [id number] [facility] Name Value Range Interpretation Code Description Data Anayeli rce(s) Supporting Document(s) Creatinine For GFR 1.30 mg/dL 0.70-1.30 Normal (applies to non -numeric results) [facility] ([facility], ) Glomerular Filtration Rate 58.4 Normal (applies to n on-numeric results) [facility] ([facility]) <content>Units are mL/min/1.73 m2</content>
<content></content>
<content>Chronic Kidney Disease Staging per NKF:</content>
<content></content>
<content>Stage I & II GFR >=60 Normal to Mildly Decreased</content>
<content>Stage III GFR 30- 59 Moderately Decreased</content>
<content>Stage IV GFR 15-29 Severely Decreased</content>
<content>Stage V GFR <15 Very Little GFR Left</content>
<content>ESRD GFR <15 on OPTOMETRIC TECHNICIAN</content>
<content></content> ID Date Data Source [id number] 06/01/2021 10:19:00 [facility] Name Value Range Interpretation Code Description Data Anayeli rce(s) Supporting Document(s) Urea nitrogen [Mass/volume] in Serum or Plasma 16 mg/dL 7 -18 Normal (applies to non-numeric results) [facility] ([facility], ) ID Date Data Source [id number] 06/01/2021 10:19:00 AM EDT [facility] (Javier Chauhan [facility]) Name Value Range Interpretation Code Description Data Anayeli rce(s) Supporting Document(s) Laboratory test finding (navigational concept) 58.4 Normal (applies to non- numeric results) [facility] (Javier Chauhan MD) <content>Units are mL/min/1.73 m2</content>
<content></content>
<content>Chronic Kidney Disease Staging per NKF:</content>
<content></content>
<content>Stage I & II GFR >=60 Normal to Mildly Decreased</content>
<content>Stage III GFR 30- 59 Moderately Decreased</content>
<content>Stage IV GFR 15-29 Severely Decreased</content>
<content>Stage V GFR <15 Very Little GFR Left</content>
<content>ESRD GFR <15 on OPTOMETRIC TECHNICIAN</content>
<content></content> Laboratory test finding (navigational concept) 1.30 mg/dL 0 .70-1.30 Normal (applies to non-numeric results) [facility] (Javier Chauhan MD) ID Date Data Source [id number] 06/01/2021 10:19:00 AM EDT [facility] (Javier Chauhan MD) Name Value Range Interpretation Code Description Data Anayeli rce(s) Supporting Document(s) Urea nitrogen [Mass/volume] in Serum or Plasma 16 mg/dL 7 -18 Normal (applies to non-numeric results) [facility] (Javier Chauhan MD) ID Date Data Source [id number] 04/06/2021 09:55:00 AM EDT [facility] (Javier Chauhan MD) Name Value Range Interpretation Code Description Data Anayeli rce(s) Supporting Document(s) Laboratory test finding (navigational concept) Laboratory test result [facility] (Javier Chauhan MD) _CULTURE URINE_ ^$[id number] ^^[id number] $$[id number] ^^206745 $$622207 $$714232 $$198051 $$007957 $$685299 $$829284 $$251621 $$476679 $$093698 $$764370 $$211444 $$191910 $$373321 $$506509 $$880926 $$587969 $$512042 $$494077 $$055519 $$009686 $$495503 $$869164 $$424832 ^^094218 $$743696 $$853300 $$519036 -- Continued on next page -- Patient: DIAMOND Mack Order: [id number] Page 2 Culture: CULTURE URINE Status: Final -- Continued on next page -- Patient: DIAMOND Mack Order: [id number] Page 2 Culture: CULTURE URINE Status: Prelim $$[id number] $$[id number] REPORTED DATE/TIME: 04/09/2021 14:06 Culture: CULTURE URINE Status: Final Urine Culture,Comprehensive: P1 No growth in 36 - 48 hours. Previous result entered on 04/08/2021 13:44 ET No growth after 18-24 hours. P1 Test performed by: [facility] Cheryl JOHNSON #: [id number] [address] [place] [address] [id number] [facility] [id number] Waste Water Treatment Plant Operator : Bijan Yang MD NPI #: Movement Education Specialist : 04/08/21.1456.XMT.SENT REF 04/09/21.2013.XMT.SENT REF 04/11/21.1140.XMT.SENT REF 04/11/21.1140. .to HARRY fuller m ID Date Data Source [id number] 04/06/2021 09:55:00 AM EDT [facility] (Javier Chauhan MD) Name Value Range Interpretation Code Description Data Anayeli rce(s) Supporting Document(s) Carcinoembryonic Ag [Mass/volume] in Serum or Plasma 3.7 ng/mL 0.0-4 .7 [facility] (Javier Chauhan MD) <content>Nonsmokers <3.9</tiffanie nt>
<content>Smokers <5.6</content>
<content>[employer] Electrochemiluminescence Immunoassay</content>
<content>(ECLIA)</content>
<content>Values obtained with different assay methods or kits</content>
<content>cannot be used interchangeably. Results cannot be</content>
<content>interpreted as absolute evidence of the presence or</content>
<content>absence of malignant disease.</content>
<content></content> ID Date Data Source [id number] 04/06/2021 09:55:00 AM EDT [facility] (Javier Chauhan MD) Name Value Range Interpretation Code Description Data Anayeli rce(s) Supporting Document(s) Laboratory test finding (navigational concept) Laboratory test result [facility] (Javier Chauhan MD) COMPREHENSIVE METABOLIC PANEL Laboratory test finding (navigational concept) 134 meq/L 134-153 [facility] (Javier Chauhan MD) Laboratory test finding (navigational concept) 4.5 meq/L 3.6-5.0 [facility] (Javier Chauhan MD) Laboratory test finding (navigational concept) 100 meq/L 98-107 [facility] (Javier Chauhan MD) Laboratory test finding (navigational concept) 23 meq/L 22-30 [facility] (Javier Chauhan MD) Laboratory test finding (navigational concept) 366 mg/dL 7 0-99 Above high normal [facility] (Javier Chauhan MD) Laboratory test finding (navigational concept) 16 mg/dL 7-21 [facility] (Javier Chauhan MD) Laboratory test finding (navigational concept) 1.1 mg/dL 0.7-1.5 [facility] (Javier Chauhan MD) Laboratory test finding (navigational concept) 15 8-27 [facility] (Javier Chauhan MD) Laboratory test finding (navigational concept) 7.1 g/dL 6.3-8.2 [facility] (Javier Chauhan MD) Laboratory test finding (navigational concept) 4.2 g/dL 3.9-5.0 [facility] (Javier Chauhan MD) Laboratory test finding (navigational concept) 2.9 GM/DL 2.4-3.2 [facility] (Javier Chauhan MD) Laboratory test finding (navigational concept) 1.4 0.8-2.0 [facility] (Javier Chauhan MD) Laboratory test finding (navigational concept) 9.1 mg/dL 8.4-10.2 [facility] (Javier Chauhan MD) Laboratory test finding (navigational concept) Laboratory test resu lt 0.2-1.3 [facility] (Javier Chauhan MD) Laboratory test finding (navigational concept) 68 U/L 38-126 [facility] (Javier Chauhan MD) Laboratory test finding (navigational concept) 18 U/L 5-40 [facility] (Javier Chauhan MD) Laboratory test finding (navigational concept) 22 U/L 7-56 [facility] (Javier Chauhan MD) Laboratory test finding (navigational concept) 11.0 mmol/L 8.0-16.0 [facility] (Javier Chauhan MD) Laboratory test finding (navigational concept) 66 yrs [facility] (Javier Chauhan MD) Laboratory test finding (navigational concept) Laboratory test result [facility] (Javier Chauhan MD) Laboratory test finding (navigational concept) Laboratory test result [facility] (Javier Chauhan MD) Male GFR Interprentation 20-49 yrs >60 mL/min Normal 50-59 yrs >56 mL/min Normal 60-69 yrs >49 mL/min Normal 70-79yrs >42 mL/min Normal 80 and above >35 mL/min Normal Female GFR Interpretation 20-39 yrs >60 mL/min Normal 40-49 yrs >58 mL/min Normal 50-59 yrs >51 mL/min Normal 60-69 yrs >45 mL/min Normal 70-79 yrs >39 mL/min Normal 80 and above >32 mL/min Normal ID Date Data Source [id number] 04/06/2021 09:55:00 AM EDT [facility] (Javier Chauhan MD) Name Value Range Interpretation Code Description Data Anayeli rce(s) Supporting Document(s) Laboratory test finding (navigational concept) Laboratory test result [facility] (Javier Chauhan MD) LIPID PANEL Laboratory test finding (navigational concept) 27 mg/dL 29-86 Below low normal [facility] (Javier Chauhan MD) Laboratory test finding (navigational concept) 112 mg/dL 1 31-200 Below low normal [facility] (Javier Chauhan MD) Laboratory test finding (navigational concept) 283 mg/dL 3 5-160 Above high normal [facility] (Javier Chauhan MD) Laboratory test finding (navigational concept) 4.1 3.4-4.9 [facility] (Javier Chauhan MD) Laboratory test finding (navigational concept) 2.48 1.00-3.55 [facility] (Javier Chauhan MD) CVE RISK CHOL/HDL LDL/HDL MEN: 1/2 AVERAGE 3.43 1.00 AVERAGE 4.97 3.55 2X AVERAGE 9.55 6.25 3X AVERAGE 23.99 7.99 WOMEN: 1/2 AVERAGE 3.27 1.47 AVERAGE 4.44 3.22 2X AVERAGE 7.05 5.03 3X AVERAGE 11.04 6.14 Laboratory test finding (navigational concept) 67 mg/dL 65-175 [facility] (Javier Chauhan MD) ID Date Data Source [id number] 04/06/2021 09:55:00 AM EDT [facility] (Javier Chauhan MD) Name Value Range Interpretation Code Description Data Anayeli rce(s) Supporting Document(s) Prostate specific Ag [Mass/volume] in Serum or Plasma 0.97 ng/mL 0.00 -4.00 [facility] (Javier Chauhan MD) \\BLDo\\PSA INTERPRETATION\\BLDx\\ The PSA assay should not be used alone for a screening test or diagnosis for presence or absence of malignant disease. Predictions of disease recurrence should not be based solely on values obtained from serial patient serum values. The PSA result was determined by "ECLIA", on the [employer]. Values obtained with different assay methods or kits cannot be used interchangeably. ID Date Data Source [id number] 04/06/2021 09:55:00 AM EDT [facility] (Javier Chauhan MD) Name Value Range Interpretation Code Description Data Anayeli rce(s) Supporting Document(s) Laboratory test finding (navigational concept) Laboratory test result [facility] (Javier Chauhan MD) URINALYSIS Laboratory test finding (navigational concept) Laboratory test result [facility] (Javier Chauhan MD) Laboratory test finding (navigational concept) 1.020 1.001-1.030 [facility] (Javier Chauhan MD) Laboratory test finding (navigational concept) Laboratory test result [facility] (Javier Chauhan MD) Laboratory test finding (navigational concept) Laboratory test result [facility] (Javier Chauhan MD) Laboratory test finding (navigational concept) 1000 Abnormal (applies to non- numeric results) [facility] (Javier Chauhan MD) Laboratory test finding (navigational concept) 5 5-9 [facility] (Javier Chauhan MD) Laboratory test finding (navigational concept) Laboratory test result [facility] (Javier hCauhan MD) Laboratory test finding (navigational concept) Laboratory test result [facility] (Javier Chauhan MD) Laboratory test finding (navigational concept) Laboratory test result [facility] (Javier Chauhan MD) Laboratory test finding (navigational concept) Laboratory test result [facility] (Javier Chauhan MD) Laboratory test finding (navigational concept) Laboratory test result [facility] (Javier Chauhan MD) Laboratory test finding (navigational concept) Laboratory test result [facility] (Javier Chauhan MD) Laboratory test finding (navigational concept) Laboratory test result [facility] (Javier Chauhan MD) Laboratory test finding (navigational concept) Laboratory test result [facility] (Javier Chauhan MD) ID Date Data Source [id number] 04/06/2021 09:55:00 AM EDT [facility] (Javier Chauhan MD) Name Value Range Interpretation Code Description Data Anayeli rce(s) Supporting Document(s) Hemoglobin A1c/Hemoglobin.total in Blood 9.2 % 4.4-6.1 Above high normal [facility] (Javier Chauhan MD) {A1] {HB] ID Date Data Source [id number] 04/09/2021 08:13:00 PM EDT [facility] Name Value Range Interpretation Code Description Data Anayeli rce(s) Supporting Document(s) CULTURE URINE [facility] _CULTURE URINE_$$[id number]$$[id number]$$[id number]$$[id number]$$364453$$669485$$479203$$505111$$623363$$ 058599$$722658$$711301$$918142$$503901$$916594$$576528$$509131$$917933$$275935$$ 981288$$287799$$547986$$325096$$201796$$954574$$693534$$[id number] -- Continued on next page --Patient: DIAMOND Mack Order: [id number] Page 2Culture: CULTURE URINE Status: Final ==== -- Continued on next page --Patient: DIAMOND Mack Order: [id number] Page 2Culture: CULTURE URINE Status: Prelim =====$$[id number]$$[id number] DATE/TIME: 04/09/2021 14:06Culture: CULTURE URINE Status: FinalUrine Culture,Comprehensive: P1No growth in 36 - 48 hours. Previous result entered on 04/08/2021 13:44 ET No growth after 18-24 hours.P1 [facility] performed [facility]: [facility]: [id number] [address] [id number] [facility] [id number] Director : Bijan Yang MD NPI #:Movement Education Specialist : 04/08/21.1456.XMT.SENT REF 04/09/21.2013.XMT.SENT REF 04/11/21.1140.XMT.SENT REF 04/11/21.1140. .to HARRY MIR via modem ID Date Data Source [id number] 04/07/2021 08:14:00 AM EDT [facility] Name Value Range Interpretation Code Description Data Anayeli rce(s) Supporting Document(s) Carcinoembryonic Ag [Mass/volume] in Serum or Plasma 3.7 ng/mL 0.0-4 .7 [facility] Nonsmokers <3.9 Smokers <5.6 [employer] Electrochemiluminescence Immunoassay (ECLIA) Values obtained with different assay methods or kits cannot be used interchangeably. Results cannot be interpreted as absolut e evidence of the presence or absence of malignant disease. ID Date Data Source [id number] 04/06/2021 11:23:00 AM EDT [facility] Name Value Range Interpretation Code Description Data Anayeli rce(s) Supporting Document(s) [facility] Cholesterol [Mass/volume] in Serum or Plasma 112 MG/DL 131 - 200 L [facility] Deprecated Triglyceride [Mass/volume] in Serum or Plasma 283 MG/DL 3 5 - 160 H [facility] HDL 27 MG/DL 29 - 86 [facility] Cholesterol in LDL [Mass/volume] in Serum or Plasma by Direc t assay 67 mg/dL 65 - 175 [facility] Cholesterol.total/Cholesterol in HDL [Mass Ratio] in Serum o r Plasma 4.1 3.4 - 4.9 [facility] LDL/HDL 2.48 1.00 - 3.55 [facility] CVE RISK CHOL/HDL LDL/HDLMEN: 1/2 AVERAGE 3.43 1.00 AVERAGE 4.97 3.55 2X AVERAGE 9.55 6.25 3X AVERAGE 23.99 7.99WOMEN: 1/2 AVERAGE 3.27 1.47 AVERAGE 4.44 3.22 2X AVERAGE 7.05 5.03 3X AVERAGE 11.04 6.14 ID Date Data Source [id number] 04/06/2021 11:23:00 AM EDT [facility] Name Value Range Interpretation Code Description Data Anayeli rce(s) Supporting Document(s) COMPREHENSIVE METABOLIC PANEL [facility] COMPREHENSIVE METABOLIC PANEL Sodium [Moles/volume] in Serum or Plasma 134 mEq/L 134 - 153 [facility] Potassium [Moles/volume] in Serum or Plasma 4.5 mEq/L 3.6 - 5.0 [facility] Chloride [Moles/volume] in Serum or Plasma 100 mEq/L 98 - 107 [facility] Carbon dioxide, total [Moles/volume] in Serum or Plasma 23 MEQ/L 22 - 30 [facility] Glucose [Mass/volume] in Serum or Plasma 366 MG/DL 70 - 99 H [facility] BUN 16 MG/DL 7 - 21 [facility] Creatinine [Mass/volume] in Serum or Plasma 1.1 MG/DL 0.7 - 1.5 [facility] BUN/CREAT 15 8 - 27 [facility] Protein [Mass/volume] in Serum or Plasma 7.1 G/DL 6.3 - 8.2 [facility] Albumin [Mass/volume] in Serum or Plasma 4.2 G/DL 3.9 - 5.0 [facility] Globulin [Mass/volume] in Serum by calculation 2.9 GM/DL 2.4 - 3.2 [facility] A/G RATIO 1.4 0.8 - 2.0 [facility] Calcium [Mass/volume] in Serum or Plasma 9.1 MG/DL 8.4 - 10.2 [facility] Bilirubin.total [Mass/volume] in Serum or Plasma <0.7 MG/DL 0.2 - 1.3 [facility] Alkaline phosphatase [Enzymatic activity/volume] in Serum or Plasma 68 U/L 38 - 126 [facility] Aspartate aminotransferase [Enzymatic activity/volume] in Serum or Plasma 18 U/L 5 - 40 [facility] Alanine aminotransferase [Enzymatic activity/volume] in Seru m or Plasma 22 U/L 7 - 56 [facility] Anion gap 3 in Serum or Plasma 11.0 mmol/L 8.0 - 16.0 [facility] AGE 66 yrs [facility] NON-AA GFR >60 mL/min [facility] AFR AMER GFR >60 mL/min [facility] Male GFR In terprentation 20-49 yrs >60 mL/min Normal 50-59 yrs >56 mL/min Normal 60-69 yrs >49 mL/min Normal 70-79yrs >42 mL/min Normal 80 and above >35 mL/min Normal Female GFR Interpretation 20-39 yrs >60 mL/min Normal 40-49 yrs >58 mL/min Normal 50-59 yrs >51 mL/min Normal 60-69 yrs >45 mL/min Normal 70-79 yrs >39 mL/min Normal 80 and above >32 mL/min Normal ID Date Data Source [id number] 04/06/2021 10:57:00 AM EDT [facility] Name Value Range Interpretation Code Description Data Anayeli rce(s) Supporting Document(s) Prostate specific Ag [Mass/volume] in Serum or Plasma 0.97 ng/mL 0.00 - 4.00 [facility] \\BLDo\\PSA INTERPRETA TION\\BLDx\\ The PSA assay should not be used alone for a screening test or diagnosis for presence or absence of malignant disease. Predictions of disease recurrence should not be based solely on values obtained from serial patient serum values. The PSA result was determined by "ECLIA", on the [employer] 6[employer]. Values obtained with different assay methods or kits cannot be used interchangeably. ID Date Data Source [id number] 04/06/2021 10:33:00 AM EDT [facility] Name Value Range Interpretation Code Description Data Anayeli rce(s) Supporting Document(s) [facility] COLOR yellow NORMAL: Yellow [facility] CLARITY clear NORMAL: Clear [facility] Specific gravity of Urine by Test strip 1.020 1.001 - 1.030 [facility] pH 5 5 - 9 [facility] Glucose [Mass/volume] in Urine by Test strip 1000 NORMAL: Negat sunday A [facility] Bilirubin.total [Presence] in Urine by Test strip NEG NORMAL: Negative [facility] Ketones [Presence] in Urine by Test strip NEG NORMAL: Negative [facility] Protein [Mass/volume] in Urine by Test strip NEG NORMAL: Negat [facility] Nitrite [Presence] in Urine by Test strip NEG NORMAL: Negative [facility] BLOOD NEG NORMAL: Negative [facility] LEUK EST NEG NORMAL: Negative [facility] Urobilinogen [Mass/volume] in Urine by Test strip NOR less komal n 1.0 mg/dL [facility] MICROSCOPIC Not Indicate [facility] ID Date Data Source [id number] 04/06/2021 10:27:00 AM EDT [facility] Name Value Range Interpretation Code Description Data Anayeli rce(s) Supporting Document(s) Hemoglobin A1c/Hemoglobin.total in Blood 9.2 % 4.4 - 6.1 H [facility] {A1]{HB] ID Date Data Source [id number] 01/03/2021 09:51:00 AM EDT [facility] (Javier Chauhan MD) Name Value Range Interpretation Code Description Data Anayeli rce(s) Supporting Document(s) Nuclear Ab [Titer] in Serum by Immunofluorescence Laboratory test res ult [facility] (Javier [facility]) <content>Negative <1:80</content>
<content>Borderline 1:80</content>
<content>Positive >1:80</content>
<content></content> ID Date Data Source [id number] 01/03/2021 09:51:00 AM EDT [facility] (Javier Chauhan MD) Name Value Range Interpretation Code Description Data Anayeli rce(s) Supporting Document(s) Laboratory test finding (navigational concept) 136 meq/L 134-153 [facility] (Javier Chauhan MD) Laboratory test finding (navigational concept) Laboratory test result [facility] (Javier Chauhan MD) COMPREHENSIVE METABOLIC PANEL Laboratory test finding (navigational concept) 4.2 meq/L 3.6-5.0 [facility] (Javier Chauhan MD) Laboratory test finding (navigational concept) 239 mg/dL 7 0-99 Above high normal [facility] (Javier Chauhan MD) Laboratory test finding (navigational concept) 28 meq/L 22-30 [facility] (Javier Chauhan MD) Laboratory test finding (navigational concept) 99 meq/L 98-107 [facility] (Javier Chauhan MD) Laboratory test finding (navigational concept) 12 8-27 [facility] (Javier Chauhan MD) Laboratory test finding (navigational concept) 1.1 mg/dL 0.7-1.5 [facility] (Javier Chauhan MD) Laboratory test finding (navigational concept) 13 mg/dL 7-21 [facility] (Javier Chauhan MD) Laboratory test finding (navigational concept) 4.5 g/dL 3.9-5.0 [facility] (Javier Chauhan MD) Laboratory test finding (navigational concept) 3.0 GM/DL 2.4-3.2 [facility] (Javier Chauhan MD) Laboratory test finding (navigational concept) 7.5 g/dL 6.3-8.2 [facility] (Javier Chauhan MD) Laboratory test finding (navigational concept) 1.5 0.8-2.0 [facility] (Javier Chauhan MD) Laboratory test finding (navigational concept) Laboratory test resu lt 0.2-1.3 [facility] (Javier Chauhan MD) Laboratory test finding (navigational concept) 9.5 mg/dL 8.4-10.2 [facility] (Javier Chauhan MD) Laboratory test finding (navigational concept) 28 U/L 5-40 [facility] (Javier Chauhan MD) Laboratory test finding (navigational concept) 67 U/L 38-126 [facility] (Javier Chauhan MD) Laboratory test finding (navigational concept) 37 U/L 7-56 [facility] (Javier Chauhan MD) Laboratory test finding (navigational concept) Laboratory test result [facility] (Javier Chauhan MD) Laboratory test finding (navigational concept) 9.0 mmol/L 8.0-16.0 [facility] (Javier Chauhan MD) Laboratory test finding (navigational concept) 65 yrs [facility] (Javier Chauhan MD) Laboratory test finding (navigational concept) Laboratory test result [facility] (Javier Chauhan MD) Male GFR Interprentation 20-49 yrs >60 mL/min Normal 50-59 yrs >56 mL/min Normal 60-69 yrs >49 mL/min Normal 70-79yrs >42 mL/min Normal 80 and above >35 mL/min Normal Female GFR Interpretation 20-39 yrs >60 mL/min Normal 40-49 yrs >58 mL/min Normal 50-59 yrs >51 mL/min Normal 60-69 yrs >45 mL/min Normal 70-79 yrs >39 mL/min Normal 80 and above >32 mL/min Normal ID Date Data Source [id number] 01/03/2021 09:51:00 AM EDT [facility] (Javier [facility]han [facility]) Name Value Range Interpretation Code Description Data Anayeli rce(s) Supporting Document(s) C reactive protein [Mass/volume] in Serum or Plasma by High sensitivity method 3.73 mg/L 1.00-3.00 Above high normal [facility] (Javier Chauhan MD) <content>CDC/S HS-CRP CUT-OFF: RELATIVE RISK:</content>
<content><1.0 mg/L Low</content>
<content>1.0 - 3.0 mg/L Average</tiffanie nt>
<content>>3.0 mg/L High</content>
<content>Optimally, the average of HS-CRP results repeated</content>
<content>two weeks apart should be used for risk assessment.</content>
<content></content> ID Date Data Source [id number] 01/03/2021 09:51:00 AM EDT [facility] (Javier Chauhan MD) Name Value Range Interpretation Code Description Data Anayeli rce(s) Supporting Document(s) Laboratory test finding (navigational concept) Laboratory test result [facility] (Javier Chauhan MD) LIPID PANEL Laboratory test finding (navigational concept) 123 mg/dL 1 31-200 Below low normal [facility] (Javier Chauhan MD) Laboratory test finding (navigational concept) 79 mg/dL 65-175 [facility] (Javier Chauhan MD) Laboratory test finding (navigational concept) 183 mg/dL 3 5-160 Above high normal [facility] (Javier Chauhan MD) Laboratory test finding (navigational concept) 32 mg/dL 29-86 [facility] (Javier Chauhan MD) Laboratory test finding (navigational concept) 3.8 3.4-4.9 [facility] (Javier Chauhan MD) Laboratory test finding (navigational concept) 2.47 1.00-3.55 [facility] (Javier Chauhan MD) CVE RISK CHOL/HDL LDL/HDL MEN: 1/2 AVERAGE 3.43 1.00 AVERAGE 4.97 3.55 2X AVERAGE 9.55 6.25 3X AVERAGE 23.99 7.99 WOMEN: 1/2 AVERAGE 3.27 1.47 AVERAGE 4.44 3.22 2X AVERAGE 7.05 5.03 3X AVERAGE 11.04 6.14 ID Date Data Source [id number] 01/03/2021 09:51:00 AM EDT [facility] (Javier Chauhan MD) Name Value Range Interpretation Code Description Data Anayeli rce(s) Supporting Document(s) Hemoglobin A1c/Hemoglobin.total in Blood 9.2 % 4.4-6.1 Above high normal [facility] (Javier Chauhan MD) {A1] {HB] ID Date Data Source [id number] 01/03/2021 09:51:00 AM EDT [facility] (Javier Chauhan MD) Name Value Range Interpretation Code Description Data Anayeli rce(s) Supporting Document(s) Laboratory test finding (navigational concept) Laboratory test result [facility] (Javier Chauhan MD) COMPLETE BLOOD COUNT Laboratory test finding (navigational concept) 5.88 10^6/uL 4.50-6.30 [facility] (Javier Chauhan MD) Laboratory test finding (navigational concept) 8.5 10^3/uL 4.2-11.0 [facility] (Javier Chauhan MD) Laboratory test finding (navigational concept) 16.7 g/dL 1 4.0-16.0 Above high normal [facility] (Javier Chauhan MD) Laboratory test finding (navigational concept) 84.9 fL 80.0-94.0 [facility] (Javier Chauhan MD) Laboratory test finding (navigational concept) 49.9 % 41.0-51.0 [facility] (Javier Chauhan MD) Laboratory test finding (navigational concept) 28.4 pg 27.0-34.0 [facility] (Javier Chauhan MD) Laboratory test finding (navigational concept) 13.4 % 11.5-14.8 [facility] (Javier Chauhan MD) Laboratory test finding (navigational concept) 279 10^3/uL 150-450 [facility] (Javier Chauhan MD) Laboratory test finding (navigational concept) 33.5 g/dL 31.0-36.0 [facility] (Javier Chauhan MD) Laboratory test finding (navigational concept) 9.2 fL 7.4-10.4 [facility] (Javier Chauhan MD) Laboratory test finding (navigational concept) 61.5 % 37.0-80.0 [facility] (Javier Chauhan MD) Laboratory test finding (navigational concept) 23.6 % 2 5.0-40.0 Below low normal [facility] (Javier Chauhan MD) Laboratory test finding (navigational concept) 7.8 % 3.0-8.0 [facility] (Javier Chauhan MD) Laboratory test finding (navigational concept) 6.0 % 0.0-7.0 [facility] (Javier Chauhan MD) Laboratory test finding (navigational concept) 0.9 % 0.0-2.0 [facility] (Javier Chauhan MD) Laboratory test finding (navigational concept) 0.2 % 0.0-0.0 Above high normal [facility] (Javier Chauhan MD) Laboratory test finding (navigational concept) 0.0 % 0.0-0.0 [facility] (Javier Chauhan MD) Laboratory test finding (navigational concept) 5.20 10^3/uL 2.00-6.90 [facility] (Javier Chauhan MD) Laboratory test finding (navigational concept) 0.66 10^3/uL 0.00-0.90 [facility] (Javier Chauhan MD) Laboratory test finding (navigational concept) 2.00 10^3/uL 0.60-3.40 [facility] (Jaiver Chauhan MD) Laboratory test finding (navigational concept) 0.08 10^3/uL 0.00-0.20 [facility] (Javier Chauhan MD) Laboratory test finding (navigational concept) 0.51 10^3/uL 0.00-0.70 [facility] (Javier Chauhan MD) Laboratory test finding (navigational concept) 0.02 10^3/uL 0.00-0.10 [facility] (Javier Chauhan MD) Laboratory test finding (navigational concept) Laboratory test result [facility] (Javier Chauhan MD) Laboratory test finding (navigational concept) Laboratory test result [facility] (Javier Chauhan MD) Laboratory test finding (navigational concept) 0.00 10^3/uL 0.00-0.00 [facility] (Javier Chauhan MD) ID Date Data Source [id number] 01/05/2021 07:18:00 AM EDT [facility] Name Value Range Interpretation Code Description Data Anayeli rce(s) Supporting Document(s) Nuclear Ab [Titer] in Serum by Immunofluorescence Negative [facility] Negative <1:80 Borderline 1:80 Positive >1:80 ID Date Data Source [id number] 01/03/2021 10:37:00 AM EDT [facility] Name Value Range Interpretation Code Description Data Anayeli rce(s) Supporting Document(s) C reactive protein [Mass/volume] in Serum or Plasma by High sensitivity method 3.73 MG/L 1.00 - 3.00 H [facility] CDC/S HS-CRP CUT-OFF: RELATIVE RISK: <1.0 mg/L Low 1.0 - 3.0 mg/L Average >3.0 mg/L High Optimally, the average of HS-CRP results repeated two weeks apart should be used for risk assessment. ID Date Data Source [id number] 01/03/2021 10:37:00 AM EDT [facility] Name Value Range Interpretation Code Description Data Anayeli rce(s) Supporting Document(s) CVE PANEL [facility] LIPID PANEL Cholesterol [Mass/volume] in Serum or Plasma 123 MG/DL 131 - 200 L [facility] Deprecated Triglyceride [Mass/volume] in Serum or Plasma 183 MG/DL 3 5 - 160 H [facility] HDL 32 MG/DL 29 - 86 [facility] Cholesterol in LDL [Mass/volume] in Serum or Plasma by Direc t assay 79 mg/dL 65 - 175 [facility] Cholesterol.total/Cholesterol in HDL [Mass Ratio] in Serum o r Plasma 3.8 3.4 - 4.9 [facility] LDL/HDL 2.47 1.00 - 3.55 [facility] CVE RISK CHOL/HDL LDL/HDLMEN: 1/2 AVERAGE 3.43 1.00 AVERAGE 4.97 3.55 2X AVERAGE 9.55 6.25 3X AVERAGE 23.99 7.99WOMEN: 1/2 AVERAGE 3.27 1.47 AVERAGE 4.44 3.22 2X AVERAGE 7.05 5.03 3X AVERAGE 11.04 6.14 ID Date Data Source [id number] 01/03/2021 10:37:00 AM EDT [facility] Name Value Range Interpretation Code Description Data Anayeli rce(s) Supporting Document(s) COMPREHENSIVE METABOLIC PANEL [facility] COMPREHENSIVE METABOLIC PANEL Sodium [Moles/volume] in Serum or Plasma 136 mEq/L 134 - 153 [facility] Potassium [Moles/volume] in Serum or Plasma 4.2 mEq/L 3.6 - 5.0 [facility] Chloride [Moles/volume] in Serum or Plasma 99 mEq/L 98 - 107 [facility] Carbon dioxide, total [Moles/volume] in Serum or Plasma 28 MEQ/L 22 - 30 [facility] Glucose [Mass/volume] in Serum or Plasma 239 MG/DL 70 - 99 H [facility] BUN 13 MG/DL 7 - 21 [facility] al Creatinine [Mass/volume] in Serum or Plasma 1.1 MG/DL 0.7 - 1.5 [facility] BUN/CREAT 12 8 - 27 [facility] al Protein [Mass/volume] in Serum or Plasma 7.5 G/DL 6.3 - 8.2 [facility] Albumin [Mass/volume] in Serum or Plasma 4.5 G/DL 3.9 - 5.0 [facility] Globulin [Mass/volume] in Serum by calculation 3.0 GM/DL 2.4 - 3.2 [facility] A/G RATIO 1.5 0.8 - 2.0 [facility] Calcium [Mass/volume] in Serum or Plasma 9.5 MG/DL 8.4 - 10.2 [facility] Bilirubin.total [Mass/volume] in Serum or Plasma <0.7 MG/DL 0.2 - 1.3 [facility] Alkaline phosphatase [Enzymatic activity/volume] in Serum or Plasma 67 U/L 38 - 126 [facility] Aspartate aminotransferase [Enzymatic activity/volume] in Serum or Plasma 28 U/L 5 - 40 [facility] Alanine aminotransferase [Enzymatic activity/volume] in Seru m or Plasma 37 U/L 7 - 56 [facility] Anion gap 3 in Serum or Plasma 9.0 mmol/L 8.0 - 16.0 [facility] AGE 65 yrs [facility] al NON-AA GFR >60 mL/min [facility] ital AFR AMER GFR >60 mL/min [facility] Ho spital Male GFR In terprentation 20-49 yrs >60 mL/min Normal 50-59 yrs >56 mL/min Normal 60-69 yrs >49 mL/min Normal 70-79yrs >42 mL/min Normal 80 and above >35 mL/min Normal Female GFR Interpretation 20-39 yrs >60 mL/min Normal 40-49 yrs >58 mL/min Normal 50-59 yrs >51 mL/min Normal 60-69 yrs >45 mL/min Normal 70-79 yrs >39 mL/min Normal 80 and above >32 mL/min Normal ID Date Data Source [id number] 01/03/2021 10:17:00 AM EDT [facility] Name Value Range Interpretation Code Description Data Anayeli rce(s) Supporting Document(s) Hemoglobin A1c/Hemoglobin.total in Blood 9.2 % 4.4 - 6.1 H [facility] {A1]{HB] ID Date Data Source [id number] 01/03/2021 10:09:00 AM EDT [facility] Name Value Range Interpretation Code Description Data Anayeli rce(s) Supporting Document(s) CBC W/AUTOMATED DIFF [facility] COMPLETE BLOOD COUNT Leukocytes [#/volume] in Blood by Automated count 8.5 10^3/uL 4.2 - 1 1.0 [facility] Erythrocytes [#/volume] in Blood by Automated count 5.88 10^6/uL 4. 50 - 6.30 [facility] Hemoglobin [Mass/volume] in Blood 16.7 g/dL 14.0 - 16.0 H [facility] Hematocrit [Volume Fraction] of Blood by Automated count 49.9 % 4 1.0 - 51.0 [facility] Erythrocyte mean corpuscular volume [Entitic volume] by Auto mated count 84.9 fL 80.0 - 94.0 [facility] Erythrocyte mean corpuscular hemoglobin [Entitic mass] by Automated count 28.4 pg 27.0 - 34.0 [facility] Erythrocyte mean corpuscular hemoglobin concentration [Mass/volume] by Automated count 33.5 g/dL 31.0 - 36.0 [facility] Erythrocyte distribution width [Ratio] by Automated count 13.4 % 11.5 - 14.8 [facility] Platelets [#/volume] in Blood by Automated count 279 10^3/uL 150 - 45 0 [facility] Platelet mean volume [Entitic volume] in Blood by Automated count 9.2 fL 7.4 - 10.4 [facility] Neutrophils/100 leukocytes in Blood by Automated count 61.5 % 37. 0 - 80.0 [facility] Lymphocytes/100 leukocytes in Blood by Manual count 23.6 % 25.0 - 40.0 L [facility] Monocytes/100 leukocytes in Blood by Automated count 7.8 % 3.0 - 8.0 [facility] Eosinophils/100 leukocytes in Blood by Automated count 6.0 % 0.0 - 7.0 [facility] Basophils/100 leukocytes in Blood by Automated count 0.9 % 0.0 - 2.0 [facility] %IG 0.2 % 0.0 - 0.0 H [facility] %NRBC 0.0 % [facility] [#/volume] in Blood by Automated count 5.20 10^3/uL 2.00 - 6.90 [facility] Lymphocytes [#/volume] in Blood by Automated count 2.00 10^3/uL 0.60 - 3.40 [facility] Monocytes [#/volume] in Blood by Automated count 0.66 10^3/uL 0.00 - 0.90 [facility] Eosinophils [#/volume] in Blood by Automated count 0.51 10^3/uL 0.00 - 0.70 [facility] Basophils [#/volume] in Blood by Automated count 0.08 10^3/uL 0.00 - 0.20 [facility] #IG 0.02 10^3/uL 0.00 - 0.10 [facility]ital #NRBC 0.00 10^3/uL 0.00 - 0.00 [facility] MANUAL DIFF NOT INDICATED [facility] RBC MORPH NOT INDICATED [facility] spital Procedure Social History No Information Vital Signs ID Date Data Source UNK Name Value Range Interpretation Code Description Data Source(s) Body height 69 [in_i] 69 [in_i] [facility]) 5'9" Body weight 225.00 [lb_av] 225.00 [lb_av] [facility] ([facility]) Body mass index (BMI) [Ratio] 33.2 kg/m2 33.2 k g/m2 [facility] ([facility]) [place] body weight 160 [lb_av] 160 [lb_av] [facility] T ([facility]) Body weight 102.060 kg 102.060 kg [facility] ([facility]) Body surface area Derived from formula 2.17 m2 2.17 m2 [facility] ([facility]) Body weight 223.00 [lb_av] 223.00 [lb_av] [facility] (Javier Chauhan MD) Oxygen saturation in Arterial blood by Pulse oximetry 96 % 96 % [facility] (Javier Chauhan MD) Diastolic blood pressure 75 mm[Hg] 75 mm[Hg] [facility] (Javier Chauhan MD) Body height 69 [in_i] 69 [in_i] [facility] (Javier Chauhan MD) 5'9" Body mass index (BMI) [Ratio] 32.9 kg/m2 32.9 k g/m2 [facility] (Javier Chauhan MD) Body temperature 97.7 [degF] 97.7 [degF] [facility] (Javier Chauhan MD) Systolic blood pressure 136 mm[Hg] 136 mm[Hg] M [facility] (Javier Chauhan MD) Heart rate 81 /min 81 /min [facility] (Javier Chahuan MD) Body weight 225.00 [lb_av] 225.00 [lb_av] [facility] ([facility], ) Body weight 102.060 kg 102.060 kg [facility] ([facility], ) Oxygen saturation in Arterial blood by Pulse oximetry 98 % 98 % [facility] (Javier Chauhan MD) Body height 69 [in_i] 69 [in_i] [facility] (Javier Chauhan MD) 5'9" Body weight 225.12 [lb_av] 225.12 [lb_av] [facility] (Javier Chauhan MD) Body mass index (BMI) [Ratio] 33.2 kg/m2 33.2 k g/m2 [facility] (Javier Chauhan MD) Body temperature 98.1 [degF] 98.1 [degF] [facility] (Javire Chauhan MD) Systolic blood pressure 145 mm[Hg] 145 mm[Hg] M [facility] (Javier Chauhan MD) Diastolic blood pressure 86 mm[Hg] 86 mm[Hg] [facility] (Javier Chauhan MD) Heart rate 85 /min 85 /min [facility] (Javier Chauhan MD) Respiratory rate 18 /min 18 /min [facility] ( Javier Chauhan MD) Systolic blood pressure 132 mm[Hg] 132 mm[Hg] M [facility] (Javier Chauhan MD) Respiratory rate 18 /min 18 /min [facility] ( Javier Chauhan MD) Body height 69 [in_i] 69 [in_i] [facility] (Javier Chauhan MD) 5'9" Body weight 223.50 [lb_av] 223.50 [lb_av] [facility] T (Javier Chauhan MD) Body mass index (BMI) [Ratio] 33.0 kg/m2 33.0 k g/m2 [facility] (Javier Chauhan MD) Body temperature 97.7 [degF] 97.7 [degF] [facility] (Javier Chauhan MD) Diastolic blood pressure 71 mm[Hg] 71 mm[Hg] [facility] (Javier Chauhan MD) Heart rate 80 /min 80 /min [facility] (Javier Chauhan MD) Oxygen saturation in Arterial blood by Pulse oximetry 98 % 98 % [facility] (Javier Chauhan MD) Body height 69 [in_i] 69 [in_i] [facility] (Javier Chauhan MD) 5'9" Body weight 222.50 [lb_av] 222.50 [lb_av] [facility] (Javier Chauhan MD) Body mass index (BMI) [Ratio] 32.9 kg/m2 32.9 k g/m2 [facility] (Javier Chauhan MD) Body temperature 98.1 [degF] 98.1 [degF] [facility] (Javier Chauhan MD) Systolic blood pressure 125 mm[Hg] 125 mm[Hg] M [facility] (Javier Chauhan MD) Diastolic blood pressure 73 mm[Hg] 73 mm[Hg] [facility] (Javier Chauhan MD) Heart rate 76 /min 76 /min [facility] (Javier Chauhan MD) Oxygen saturation in Arterial blood by Pulse oximetry 98 % 98 % [facility] (Javier Chauhan MD) Respiratory rate 18 /min 18 /min [facility] ( Javier Chauhan MD) Body mass index (BMI) [Ratio] 32.8 kg/m2 32.8 k g/m2 [facility] (Javier Chauhan MD) Body temperature 99.1 [degF] 99.1 [degF] [facility] (Javier Chauhan MD) Systolic blood pressure 134 mm[Hg] 134 mm[Hg] M [facility] (Javier Chauhan MD) Diastolic blood pressure 83 mm[Hg] 83 mm[Hg] [facility] (Javier Chauhan MD) Heart rate 78 /min 78 /min [facility] (Javier Chauhan MD) Oxygen saturation in Arterial blood by Pulse oximetry 96 % 96 % [facility] (Javier Chauhan MD) Body height 69 [in_i] 69 [in_i] [facility] (Javier Chauhan MD) 5'9" Body weight 222.00 [lb_av] 222.00 [lb_av] [facility] T (Javier Chauhan MD) Body height 69 [in_i] 69 [in_i] [facility] (Javier Chauhan MD) 5'9" Body weight 226.12 [lb_av] 226.12 [lb_av] [facility] (Javier Chauhan MD) Body mass index (BMI) [Ratio] 33.4 kg/m2 33.4 k g/m2 [facility] (Javier Chauhan MD) Body temperature 98.1 [degF] 98.1 [degF] [facility] (Javier Chauhan MD) Systolic blood pressure 136 mm[Hg] 136 mm[Hg] M [facility] (Javier Chauhan MD) Diastolic blood pressure 84 mm[Hg] 84 mm[Hg] [facility] (Javier Chauhan MD) Heart rate 93 /min 93 /min [facility] (Javier Chauhan MD) Oxygen saturation in Arterial blood by Pulse oximetry 98 % 98 % [facility] (Javier Chauhan MD) Body weight 226.25 [lb_av] 226.25 [lb_av] [facility] T (Javier Chauhan MD) Body height 69 [in_i] 69 [in_i] [facility] (Javier Chauhan MD) 5'9" Body mass index (BMI) [Ratio] 33.4 kg/m2 33.4 k g/m2 [facility] (Javier Chauhan MD) Body temperature 98.1 [degF] 98.1 [degF] [facility] (Javier Chauhan MD) Systolic blood pressure 130 mm[Hg] 130 mm[Hg] M [facility] (Javier Chauhan MD) Diastolic blood pressure 79 mm[Hg] 79 mm[Hg] [facility] (Javier Chauhan MD) Heart rate 75 /min 75 /min [facility] (Javier Chauhan MD) Oxygen saturation in Arterial blood by Pulse oximetry 92 % 92 % [facility] (Javier Chauhan MD)
--- OUTSIDE RECORDS SUMMARY | 2021-06-30 07:03 | CCD | Continuity of Care Document ---
Author Author Yoni BETTENCOURT P.CDivina Organization Unknown Address [address] [place] [id number] Phone [phone] Care Team Providers Care Screen Tacker Name Role Phone Mere BETTENCOURT AUTM [phone] Social History Type Date Description Comments Sex [...] [facility] Freestyle Lite Test Strips [facility] Glimepiride 4mg Tablets Take 2 tablets by [...] Date Facility Test Result H/L Range Note CBC W/Automated Diff 01/03/[address] [address] [phone] CBC W/Automated Diff (SEE NOTE) 1 WBC 8.5 10^3/uL 4.2 - 11.0 RBC [...] Lymph 23.6 % Low 25.0 - 40.0 [place] 7.8 % 3.0 - 8.0 Eos 6.0 % 0.0 - 7.0 Baso 0.9 % 0.0 - 2.0 %Ig 0.2 % High 0.0 - 0.0 %NRBC 0.0 % 0.0 - 0.0 #Neut 5.20 10^3/uL 2.00 - 6.90 #Lymph 2.00 10^3/uL 0.60 - 3.40 #[place] 0.66 10^3/uL 0.00 - 0.90 #Eos 0.51 10^3/uL 0.00 - 0.70 #Baso 0.08 10^3/uL 0.00 - 0.20 #Ig 0.02 10^3/uL 0.00 - 0.10 #NRBC 0.00 10^3/uL 0.00 - 0.00 Manual Diff NOT INDICATED RBC Morph NOT INDICATED Laboratory test finding 01/03/2021 [place] [address] [phone] Hgba1c 9.2 % High 4.4 - 6.1 2 Cve Panel 01/03/2021 [place] [address] [phone] Cve Panel (SEE NOTE) 3 Cholesterol 123 mg/dL Low 131 - 200 Triglycerides 183 mg/dL High 35 - 160 HDL 32 mg/dL 29 - 86 LDL 79 mg/dL 65 - 175 Risk Factor 3.8 3.4 - 4.9 LDL/HDL 2.47 1.00 - 3.55 4 Laboratory test finding 01/03/2021 [place] [address] [phone] CRP (High Sensitivity) 3.73 mg/L High 1.00 - 3. 00 5 Comprehensive Metabolic Panel 01/03/2021 [facility] [address] [place], [place] [id number] [phone] Comprehensive Metabo (SEE NOTE) 6 Sodium 136 mEq/L 134 - 153 Potassium [...] GFR >60 mL/min 7 Laboratory test finding 01/03/2021 [facility] l [address] [place] [address] [phone] Ana M Ifa Negative 8 1 COMPLETE BLOOD COUNT 2 {A1] {HB] 3 LIPID PANEL 4 CVE RISK CHOL/HDL LDL/HDL MEN: 1/2 AVERAGE 3.43 1.00 AVERAGE 4.97 3.55 2X AVERAGE 9.55 6.25 3X AVERAGE 23.99 7.99 WOMEN: 1/2 AVERAGE 3.27 1.47 AVERAGE 4.44 3.22 2X AVERAGE 7.05 5.03 3X AVERAGE 11.04 6.14 5 CDC/AHS HS-CRP CUT-OFF: RELATIVE RISK: <1.0 mg/L Low 1.0 - 3.0 mg/L A verage >3.0 mg/L High Optimally, the average of HS-CRP results repeated two weeks apart should be used for risk assessment. 6 COMPREHENSIVE METABOLIC PANE L 7 Male [...] 80 and above >32 mL/min Normal 8 Negative <1:80 Borderline 1:80 Positive >1:80 Procedures Date Code Description Status 12/31/2020 98196 Office/Outpatient Established Mo d MDM 30-39 Min Completed 10/07/2020 34349 Office/Outpatient Established Mo d MDM 30-39 Min Completed Encounters Type Date Location Provider Dx Diagnosis Office Visit 12/31/2020 10:15a [facility] I11.9 Hypertensive heart disease without heart failure E10.9 Type 1 diabetes mellitus wit hout complications L23.9 Allergic contact dermatitis, unspecified cause Office Visit 10/07/2020 10:45a [facility] I11.9 Hypertensive heart disease without heart failure E78.5 Hyperlipidemia, unspecified E10.9 Type 1 diabetes mellitus wit hout complications Assessments Date Code Description Provider 12/31/2020 I11.9 Hypertensive heart disease witho ut heart failure [facility] 12/31/2020 E10.9 Type 1 diabetes mellitus without complications [facility] 12/31/2020 L23.9 Allergic contact dermatitis, uns pecified cause [facility] 10/07/2020 I11.9 Hypertensive heart disease witho ut heart failure [facility] 10/07/2020 E78.5 Hyperlipidemia, unspecified Brannon [facility]han [facility] 10/07/2020 E10.9 Type 1 diabetes mellitus without complications [facility] Plan of Treatment Future Appointment(s):* 05/06/2021 10:15 am - [facility] at [facility]
[2021-06-30] MEDS ORDERED: HumaLOG INSULIN (NovoLOG) PER UNIT SC ONE (08:35)
[2021-06-30] MEDS ORDERED: CIPRODEX OTIC SUSP 7.5ML As Ordered ONE (08:51)
[2021-06-30] MEDS ORDERED: ONDANSETRON 4MG/2ML VIAL As Ordered ONE (09:12)
[2021-06-30] MEDS ORDERED: fentaNYL 100 MCG/2 ML INJECTION (J3010) As Ordered ONE (09:12)
[2021-06-30] MEDS ORDERED: propofoL 200 MG/20 ML VIAL As Ordered ONE (09:12)
[2021-06-30] MEDS ORDERED: MIDAZOLAM INJ 2MG/2ML VIAL (J2250 PER 1MG) As Ordered ONE (09:12)
[2021-06-30] MEDS ORDERED: LIDOCAINE 2% 100MG/5ML SDV (FOR ANES.) As Ordered ONE (09:12)
[2021-06-30 10:20] VITALS: BP 140/81
[2021-06-30] MEDS ORDERED: LR 1,000 ML IV SCH (10:20)
[2021-06-30] MEDS ORDERED: oxyCODONE 5MG TAB PO PRN (10:20)
[2021-06-30] MEDS ORDERED: ONDANSETRON 4MG/2ML VIAL IV PRN (10:20)
== END 2021-06-30 11:16 | disposition home or self-care (01) ==
LOC: M SDC 06:58
PROVIDERS: ATTEND Otolaryngology
DX: H65.22 Chronic serous otitis media, left ear (principal); I10 Essential (primary) hypertension; E11.9 Type 2 diabetes mellitus without complications; E78.5 Hyperlipidemia, unspecified; I25.10 Atherosclerotic heart disease of native coronary artery without angina pectoris; Z79.84 Long term (current) use of oral hypoglycemic drugs; Z79.899 Other long term (current) drug therapy; Z88.0 Allergy status to penicillin
CPT/HCPCS: 69436; J2250; J2405; J3010

== ENCOUNTER → 2021-10-18 | Outpatient (CLI) | payer MEDICARE, OTHER ==
[~2021-10-18] MED LIST changes: -LR 1,000 ML IV ONE; -dexameTHASONE 4 MG/ML 1ML VIAL (J1100 PER 1MG) IV ONE
== END ==
LOC: M RAD 11:59
PROVIDERS: ATTEND Orthopaedic Surgery
DX: M17.0 Bilateral primary osteoarthritis of knee (principal)

== ENCOUNTER → 2022-05-26 | Outpatient (CLI) | payer OTHER, MEDICARE ==
[2022-05-26 09:38] LABS: BLOOD UREA NITROGEN 13 MG/DL (7-18); CARBON DIOXIDE LEVEL 26 MEQ/L (21-32); CHLORIDE LEVEL 105 MEQ/L (98-107); CREATININE FOR GFR 1.21 MG/DL (0.70-1.30); GLOMERULAR FILTRATION RATE > 60.0 (>49); GLUCOSE, FASTING 276 MG/DL (70-100); SODIUM LEVEL 135 MEQ/L (136-145)
== END ==
LOC: M LAB 08:30
PROVIDERS: ATTEND Orthopaedic Surgery
DX: S83.242A Other tear of medial meniscus, current injury, left knee, initial encounter (principal); S83.282A Other tear of lateral meniscus, current injury, left knee, initial encounter; X58.XXXA Exposure to other specified factors, initial encounter; Y92.9 Unspecified place or not applicable

== ENCOUNTER 2024-11-10 06:41 | Day surgery (SDC) | payer MEDICARE ==
[~2024-11-10] VITALS: Ht 175.3 cm; Wt 93.9 kg
[~2024-11-10 06:41] MED LIST changes: +DULA3PEN; -K-TA10TA2 PO; +POTA-165 PO
[2024-11-10] MEDS ORDERED: LR 1,000 ML IV SCH (07:00)
[2024-11-10] MEDS: PHENYLEPHRINE 2.5% OPHTH SOL 2ML OD SCH (07:25)
[2024-11-10] MEDS: CYCLOPENTOLATE 1% OPHTH SOLN 2ML BTL OD SCH (07:25)
[2024-11-10] MEDS ORDERED: INSULIN LISPRO (NovoLOG) PER UNIT SC PRN (07:25)
[2024-11-10] MEDS: TETRACAINE 0.5% OPHTH SOLN 4ML OD SCH (07:25)
[2024-11-10] MEDS: FLURBIPROFEN 0.03% OPHTH SOLN 2.5 ML OD SCH (07:25)
[2024-11-10] MEDS ORDERED: fentaNYL 100 MCG/2 ML INJECTION As Ordered ONE (07:34)
[2024-11-10] MEDS ORDERED: MIDAZOLAM INJ 2MG/2ML VIAL As Ordered ONE (07:34)
[2024-11-10] MEDS: LIDOCAINE 1% SDV 5ML VIAL As Ordered ONE (08:21)
[2024-11-10] MEDS: CEFUROXIME 1MG/0.1ML INTRACAMERAL INJ As Ordered ONE (08:22)
[2024-11-10 08:40] VITALS: BP 141/65; TEMP 97.8; O2SAT 96
== END 2024-11-10 08:53 | disposition home or self-care (01) ==
LOC: M SDC 06:41
PROVIDERS: ATTEND Ophthalmology
DX: H25.11 Age-related nuclear cataract, right eye (principal); I25.10 Atherosclerotic heart disease of native coronary artery without angina pectoris; E11.9 Type 2 diabetes mellitus without complications; E78.5 Hyperlipidemia, unspecified; Z79.82 Long term (current) use of aspirin; Z79.84 Long term (current) use of oral hypoglycemic drugs; Z79.899 Other long term (current) drug therapy; Z88.0 Allergy status to penicillin; Z98.61 Coronary angioplasty status; Z87.891 Personal history of nicotine dependence
CPT/HCPCS: 66984; J0697; J2250; J3010; V2632

== ENCOUNTER 2024-11-17 06:37 | Day surgery (SDC) | payer MEDICARE ==
[~2024-11-17] VITALS: Ht 179.1 cm; Wt 93.8 kg
[2024-11-17] MEDS ORDERED: fentaNYL 100 MCG/2 ML INJECTION As Ordered ONE (06:54)
[2024-11-17] MEDS ORDERED: MIDAZOLAM INJ 2MG/2ML VIAL As Ordered ONE (06:54)
[2024-11-17] MEDS ORDERED: LR 1,000 ML IV SCH (07:00)
[2024-11-17] MEDS: CYCLOPENTOLATE 1% OPHTH SOLN 2ML BTL OD SCH (07:05)
[2024-11-17] MEDS: TETRACAINE 0.5% OPHTH SOLN 4ML OD SCH (07:05)
[2024-11-17] MEDS: FLURBIPROFEN 0.03% OPHTH SOLN 2.5 ML OD SCH (07:05)
[2024-11-17] MEDS: PHENYLEPHRINE 2.5% OPHTH SOL 2ML OD SCH (07:05)
[2024-11-17] MEDS ORDERED: GLUCOSE 4 GM CHEW PO PRN (07:25)
[2024-11-17] MEDS ORDERED: DEXTROSE 50% 50ML SYRINGE IV PRN (07:25)
[2024-11-17] MEDS ORDERED: GLUCAGON INJ 1MG VIAL SC PRN (07:25)
[2024-11-17] MEDS: INSULIN LISPRO (NovoLOG) PER UNIT SC PRN (07:39)
[2024-11-17] MEDS: LIDOCAINE 1% SDV 5ML VIAL As Ordered ONE (08:28)
[2024-11-17] MEDS: CEFUROXIME 1MG/0.1ML INTRACAMERAL INJ As Ordered ONE (08:29)
[2024-11-17 08:50] VITALS: BP 141/72; TEMP 98.1; O2SAT 96
== END 2024-11-17 09:11 | disposition home or self-care (01) ==
LOC: M SDC 06:37
PROVIDERS: ATTEND Ophthalmology
DX: H25.12 Age-related nuclear cataract, left eye (principal); I25.10 Atherosclerotic heart disease of native coronary artery without angina pectoris; I10 Essential (primary) hypertension; Z98.61 Coronary angioplasty status; E78.5 Hyperlipidemia, unspecified; E11.9 Type 2 diabetes mellitus without complications; Z79.82 Long term (current) use of aspirin; Z79.84 Long term (current) use of oral hypoglycemic drugs; Z79.899 Other long term (current) drug therapy; Z88.0 Allergy status to penicillin
CPT/HCPCS: 66984; J0697; J1815; J2250; J3010; V2632